=== PATIENT | male | born 1990 | race African-American/Black ===

== ENCOUNTER 2025-05-12 18:01 | Inpatient (IN) | payer SELFPAY ==
--- NOTE | ~2025-05-12 | MR_ITS ---
EXAMINATION: MR lower leg BI wo/w con DATE: 05/14/2025 13:15 INDICATION: Myositis TECHNIQUE: Magnetic resonance imaging (MRI) of the bilateral lower legs from the knees through the ankles was performed without intravenous contrast. Sequences included axial, sagittal and coronal T1-weighted FSE and fluid sensitive FSE STIR, axial T1-weighted FS FSE and post contrast axial, sagittal and coronal T1- weighted FS FSE. COMPARISON: None. FINDINGS: Bone marrow signal is normal throughout with no reactive edema, fracture or pathologic marrow replacing process. Musculature of the bilateral calves appears normal and symmetric with no evident atrophy or abnormal signal. Visualized portion of the tendons are normal. No abnormal enhancing lesions identified. No abnormal masses or fluid collections identified. IMPRESSION: 1. Normal MRI of the bilateral lower legs. Reviewed, dictated and finalized at location A.
--- NOTE | ~2025-05-12 | CT_ITS ---
EXAMINATION: CT chest abdomen pelvis w con DATE: 05/12/2025 22:03 INDICATION: Nausea and vomiting. Leukocytosis. Myalgias. TECHNIQUE: Computed tomography (CT) of the chest, abdomen, and pelvis was performed with 100 mL Omnipaque 350 intravenous contrast. Automated exposure control and iterative reconstruction technique were employed. The dose-length product was 384.76 mGy-cm. COMPARISON: None FINDINGS: CHEST CT: There is a 4 mm nodule in right lung upper lobe, likely benign. There is a 3 mm nodule left lower lobe, likely benign. No pleural effusion. The heart size is normal. No pericardial effusion. There are compression fractures of T4-T6 with up to 1/5 loss of height. ABDOMEN/PELVIS CT: The liver, gallbladder, spleen, pancreas, adrenal glands, and right kidney are normal. There is a 3 mm stone in left kidney. There are no dilated loops of bowel. The appendix is not visualized. There are no pathologically enlarged lymph nodes. There is no free intraperitoneal fluid. There is mild lumbar spondylosis. IMPRESSION: 1. Compression fractures of T4-T6, likely subacute or subacute. Reviewed, dictated and finalized at location E.
--- NOTE | ~2025-05-12 | US_ITS ---
EXAMINATION: US thyroid DATE: 05/15/2025 09:24 INDICATION: Hypothyroidism. TECHNIQUE: Multiple ultrasound images of the thyroid were obtained. COMPARISON: None. FINDINGS: The right thyroid lobe measures 4.8 x 1.9 x 1.7 cm. The left thyroid lobe measures 3.5 x 1.4 x 1.5 cm. In the right thyroid lobe, there is a 10 mm mixed cystic and solid, hypoechoic, wider than tall nodule with smooth margin without echogenic foci (TI-RADS TR3). IMPRESSION: 1. Small thyroid nodule, likely not clinically significant. No follow-up is needed. Reviewed, dictated and finalized at location E. IMPRESSION: 1. Small thyroid nodule, likely not clinically significant. No follow-up is nee ded.
--- NOTE | ~2025-05-12 | US_ITS ---
US abdomen limited Indication: Elevated liver enzymes Comparison: None Technique: King-scale and color Doppler images were obtained. Findings: LIVER: Liver measures 12.9 cm. Mild increased echogenicity of the liver. . GALLBLADDER/BILIARY: Trace gallbladder wall thickening with pericholecystic fluid or cholelithiasis. CBD 2.4 mm. [place] sign negative. PANCREAS: Pancreas limited by bowel gas Right Kidney: The right kidney was not imaged. Impression: 1. No acute process. Mild hepatic steatosis versus hepatocellular disease Reviewed, dictated and finalized at location A. Impression: 1. No acute process. Mild hepatic steatosis versus hepatocellular disease
[2025-05-12 18:03] VITALS: BP 124/95; PULSE 91; RESP 20; TEMP 37.3; O2SAT 98
[2025-05-12 19:24] VITALS: BP 136/85; PULSE 77; RESP 15; TEMP 36.8; O2SAT 99
--- NOTE | 2025-05-12 19:40 | ED.NAVMDI ---
HPI - Nausea/Vomiting/Diarrhea General Chief complaint: Nausea/Vomiting/Diarrhea Stated complaint: n/v, weakness Time Seen by Provider: 05/12/25 19:30 Source: patient and family (mother) Mode of arrival: ambulatory Limitations: no limitations History of Present Illness HPI Narrative: Patient presents with report of being nauseated and vomiting 5x, nonbloody. Feels weak. Having generalized body pain, particularly in bilateral shoulders. Symptoms started last night. Feels like his tongue is swollen and with cuts bilaterally, this started this morning. No seizure history or report of seizures. No diarrhea or fevers. History of asthma but doesn't use an inhaler. Doesn't smoke cigarettes but does smoke marijuana. History of sickle cell trait. No abdominal pain. Having a little difficulty swallowing. Has a sore throat. No sick contacts. PCP Dr Negro. No chest pain or difficulty breathing. Related Data Home Medications ?Medication ?Instructions ?Recorded ?Confirmed ?Last Taken ?Type No Home Medications 05/13/25 05/13/25 Unknown History Allergies Allergy/AdvReac Type Severity Reaction Status Date / Time ibuprofen Allergy Intermediate Itching Verified 05/12/25 18:02 [facility] Past Medical History Medical History (Updated 05/13/25 @ 02:13 by Edie Lazo APRN) Sickle cell trait Asthma Surgical History Surgical History (Updated 05/13/25 @ 01:51 by Edie Lazo APRN) No pertinent past surgical history Family History Family History (Updated 05/13/25 @ 01:52 by Edie Lazo APRN) Other No pertinent family history Social History Social History (Updated 05/13/25 @ 01:55 by Edie Lazo APRN) Social History: Patient admits to smoking marijuana but denies any other drug use. He denies any alcohol use. He is single Code status: Full code Smoking status: Never smoker Alcohol intake: never Substance use: current Substance use type: marijuana Lack of Transportation: No Lack of Food: Never True Current Housing: I Have Housing Concerned About Future Housing: No Difficulty Paying Gas/Electric Bills: No Difficulty Paying for Meds: No Currently Unemployed: No Education: High School Diploma/GED Difficulty w/ Childcare or Family Care: No Spiritual care concerns: No Exam Narrative: GENERAL: well-nourished, and in no acute distress. HEAD: Normocephalic, atraumatic. EYES: Non injected, non icteric ENT: Nares clear, no rhinorrhea or epistaxis. Gross auditory acuity intact. Posterior oropharynx with mild hyperemia. Uvula midline. Tongue is covered in white film, though fairly universal; mildly edematous. Faint areas on bilateral tongue that are hypopigmented, no appreciable laceration/distinct tongue trauma. No trismus. NECK: Supple. No meningismus. CHEST: Speaking in full sentences. No respiratory distress. HEART: Regular rate and rhythm. . ABDOMEN: Soft, nondistended. No rigidity or guarding. Not peritoneal EXTREMITIES: Normal range of motion. No lower extremity edema. No edema or atrophy of musculature at his shoulders or thighs. Compartments soft. No obvious bony deformity. SKIN: Warm, dry, no rash. NEURO: No focal deficits. Alert and oriented. Answering questions. Following commands. Normal speech without aphasia or dysarthria. PSYCH: Normal mood and affect. Course Vital Signs Vital signs: Vital Signs Temperature 99.1 F 05/12/25 18:03 Pulse Rate 91 05/12/25 18:03 Respiratory Rate 20 05/12/25 18:03 Blood Pressure 124/95 H 05/12/25 18:03 Pulse Oximetry 98 05/12/25 18:03 Oxygen Delivery Room Air 05/12/25 18:03 Temperature 98.6 F 05/13/25 21:28 Pulse Rate 74 05/13/25 21:28 Respiratory Rate 16 05/13/25 21:28 Blood Pressure 134/82 05/13/25 21:28 Pulse Oximetry 100 05/13/25 21:28 Oxygen Delivery Room Air 05/13/25 08:00 MDM - Nausea/Vomiting/Diarrhea MDM Narrative Medical decision making narrative: Patient presents with nausea, 5 episodes of vomiting, and report of myalgias particualrly bilateral shoulder pain . Also feels like his tongue is swollen. In the emergency department he is afebrile with acceptable vital signs alleviated diastolic blood pressure normalized on repeat assessment interval intervention. Viral swab negative. Strep swab negative. Creatinine 1.83 with no prior for comparison. Isolated AST elevation. Marked leuocytosis at >20. Will proceed with CT abd/pelvis. Lipase normal. HIV screen (obtained due to questionable thrush in otherwise healthy adult) negative. Attempted to reassessed patient at 9:55 pm but he had been taken to CT. Mother at bedside didn't know if he had reported feeling better but states he was still having shoulder pain. Called CT and asked that they add CT chest on as well while he is on the table. They will change order. Patient having pain in his arms and legs when reassessed at 10:20 p.m.. Will obtain screening EKG and add on Magnesium and CPK. Morphine ordered. When asked how is nausea is, he reports, I don't have no nausea although he had endorsed this earlier; reassured that he is feeling better from this perspective. Troponin normal. CPK markedly elevated at >16,000. 3rd L ordered. In regards to the CT finding in his back, he reports no recent injury or trauma. No crush injury. This is not acute. He states he hurt his back a while ago although he was not aware that he had any her fractures. Discussed with on-call hospitalist Edie. Maintenance IV fluids ordered at 200cc/hr. Differential Diagnosis Differential diagnosis: Likely other (gastritis; acute viral syndrome; peptic ulcer disease; ) Lab Data Attestation: I reviewed the patient's lab results. 05/13/25 05:49 05/13/25 05:49 Labs: Lab Results 05/12/25 05/12/25 05/12/25 Range/Units 19:39 20:27 20:39 WBC 21.6 H (4.5-10.0) K/mm3 RBC 4.99 (4.6-6.20) M/mm3 Hgb 14.6 (14.0-18.0) g/dL Hct 41.5 L (42.0-52.0) % MCV 83.2 (80-100) fl MCH 29.3 (26-34) pg MCHC 35.2 (32-36) g/dl RDW 12.4 (11.5-14.5) % Plt Count 188 (150-375) k/mm3 MPV 9.7 (7.4-10.4) fl Immature Gran % (Auto) 0.6 H (0-0.5) % Neut % (Auto) 89.4 H (45.5-73.1) % Lymph % (Auto) 4.2 L (18.3-44.2) % [place] % (Auto) 5.7 (2.6-8.5) % Eos % (Auto) 0.0 (0-4.4) % Baso % (Auto) 0.1 L (0.2-1.2) % Lymph # (Auto) 0.91 (0.9-3.2) K/mm3 [place] # (Auto) 1.2 H (0.1-0.6) K/mm3 Eos # (Auto) 0.0 (0-0.3) K/mm3 Baso # (Auto) 0.0 (0.0-0.1) K/mm3 Abs Immat Gran (auto) 0.12 H (0.00-0.031) K/mm3 Absolute Neuts (auto) 19.3 H (1.3-6.7) K/mm3 Absolute Nucleated RBC 0.000 (0.0-0.012) K/mm3 Nucleated RBC % 0.0 (0.0-0.2) % PT 16.8 H (11.1-14.7) Seconds INR 1.4 APTT 36.8 (22.3-36.8) Seconds Fibrinogen 507 (215-510) mg/dl Sodium 136 L (137-145) mmol/L Potassium 3.8 (3.4-5.0) mmol/L Chloride 101 (98-107) mmol/L Carbon Dioxide 24 (22-30) mmol/L Anion Gap 11 (4-12) mmol/L BUN 16 (9-20) mg/dL Creatinine 1.83 H (0.7-1.3) mg/dL Estim Creat Clear Calc 40 ml/min Estimated GFR 43 L (59 - ) Glucose 90 (65-110) mg/dL Uric Acid 14.6 H (3.5-8.5) mg/dL Calcium 9.3 (8.4-10.2) mg/dL Phosphorus 4.6 H (2.5-4.5) mg/dL Magnesium 3.2 H (1.6-2.3) mg/dL Total Bilirubin 0.8 (0.2-1.3) mg/dL AST 185 H (17-59) U/L ALT 34 (6-50) U/L Alkaline Phosphatase 122 (38-126) U/L Total Creatine Kinase > 17030 H (55-170) U/L Troponin I < 0.012 (0.000-0.034) ng/mL Total Protein 9.0 H (6.3-8.2) g/dL Albumin 4.9 (3.5-5.1) g/dL Lipase 31 (23-300) U/L Urine Color Yellow (Yellow) Urine Appearance Clear (Clear) Urine pH 5.5 (5.0-9.0) Ur Specific [place] 1.012 (1.001-1.035) Urine Protein 1+ H (Negative) mg/dL Urine Glucose (UA) Negative (Negative) mg/dL Urine Ketones 1+ H (Negative) mg/dL Ur Blood (Man) 2+ H (Negative) Urine Nitrate Negative (Negative) Urine Bilirubin Negative (Negative) Urine Urobilinogen 0.2 (<2.0) mg/dL Leukocyte Esterase Rfl Trace H (Negative) KANE/UL Urine RBC 0-2 (0-2) /hpf Urine WBC 6-10 H (0-3) /hpf Ur Squamous Epith Cells Occasional (Few) /hpf Urine Bacteria None seen /hpf Urine Casts 3-5 Urine Opiates Screen Negative (Negative) Urine Methadone Screen Negative (Negative) Ur Barbiturates Screen Negative (Negative) Ur Phencyclidine Scrn Negative (Negative) Ur Amphetamine Screen Negative (Negative) U Benzodiazepines Scrn Negative (Negative) Urine Cocaine Screen Negative (Negative) U Cannabinoids Screen Positive A (Negative) Ethyl Alcohol < 10 (<10) mg/dL HIV 1&2 Ab/P24 Ag 4thGn Negative (Negative) Influenza A (RT-PCR) Negative (Negative) Influenza B (RT-PCR) Negative (Negative) RSV (RT-PCR) Negative (Negative) SARS-CoV-2 RNA (RT-PCR) Negative (Negative) Group A Strep (PCR) Not detected (Negative) Imaging Data Radiologist's impression: CT Chest Stat Rad: No pulmonary contusion or pneumothorax Acute compression fractures involving superior endplate of T5 and T6. No significant loss of height. Correlate for history of trauma. CT abdomen pelvis Stat Rad: No traumatic visceral injury. No acute fractures. ECG Data EKG #1: Attestation: I personally reviewed and interpreted this ECG as follows: ECG completion date: 05/12/25 ECG completion time: 22:38 Interpretation: Normal sinus rhythm at a rate of 82 beats per minute. LA interval 158. QRS 107. QT/QTC 367/0 6. Good R-wave progression across the precordial leads. No T-wave inversions. Nifedipine. Right axis deviation based on QRS complex negative in 1 otherwise upright in inferior leads. Discharge Plan Discharge Clinical Impression: BOAZ (acute kidney injury), Nausea & vomiting, Elevated AST (SGOT), Myalgia, Bilateral shoulder pain, Mild tongue swelling, Rhabdomyolysis, Compression fracture of T5 vertebra, Compression fracture of T6 vertebra Patient Disposition: Still a Patient Condition: Stable Time of Disposition: 00:11
[2025-05-12 20:10] LABS: Add Urine Microscopic? YES; Appearance Urine Clear (Clear); Glucose Urine UA Negative (Negative); Leukocyte Esterase Ur Trace LEU/UL (Negative); Nitrate Urine Negative (Negative); Specific Grav Ur 1.012 (1.001-1.035)
[2025-05-12 20:30] LABS: Influenza A QL RT-PCR Negative (Negative); Influenza B QL RT-PCR Negative (Negative); RSV RNA, RT-PCR Negative (Negative); SARS-CoV-2 RNA PCR Negative (Negative)
[2025-05-12 20:51] LABS: Hematocrit 41.5 % (42.0-52.0); Hemoglobin 14.6 g/dL (14.0-18.0); Immature Granulocyte Percent A 0.6 % (0-0.5); Lymphocytes Absolute Auto 0.91 K/mm3 (0.9-3.2); Mean Corpuscular HGB Conc 35.2 g/dl (32-36); Mean Corpuscular Hemoglobin 29.3 pg (26-34); Mean Corpuscular Volume 83.2 fl (80-100); Nucleated Red Blood Cells Absolute Auto 0.000 K/mm3 (0.0-0.012); Nucleated Red Blood Cells Perc 0.0 % (0.0-0.2); Platelet Count Result 188 k/mm3 (150-375); Red Blood Count 4.99 M/mm3 (4.6-6.20); White Blood Count 21.6 K/mm3 (4.5-10.0)
[2025-05-12] MEDS: ACETAMINOPHEN 500 MG TABLET 1000 MG PO (20:53)
[2025-05-12 20:54] LABS: Alanine Aminotransferase 34 U/L (6-50); Albumin Level 4.9 g/dL (3.5-5.1); Alkaline Phosphatase 122 U/L (38-126); Anion Gap 11 mmol/L (4-12); Aspartate Amino Transferase 185 U/L (17-59); Bilirubin,Total 0.8 mg/dL (0.2-1.3); Blood Urea Nitrogen 16 mg/dL (9-20); Calcium 9.3 mg/dL (8.4-10.2); Carbon Dioxide 24 mmol/L (22-30); Chloride 101 mmol/L (98-107); Estimated CRCL calculation 40 ml/min; Estimated Glomerular Filt Rate 43; Glucose 90 mg/dL (65-110); Potassium 3.8 mmol/L (3.4-5.0); Sodium 136 mmol/L (137-145); Total Protein 9.0 g/dL (6.3-8.2)
[2025-05-12] MEDS: ONDANSETRON INJ 4 MG/2 ML VIAL IV PUSH (20:54)
[2025-05-12] MEDS: SODIUM CHLORIDE 0.9% IV 1,000 ML 999 ML IV CONT ×3 (20:54→23:44)
[2025-05-12 20:55] LABS: Strep Group A RT-PCR NOT DETECTED (Negative)
[2025-05-12 21:43] LABS: HIV 1/2 Ab P24 Ag Result Negative (Negative)
[2025-05-12 21:50] LABS: Lipase 31 U/L (23-300)
--- NOTE | 2025-05-12 22:23 | ECG_ITS ---
Test Date: 2025-05-12 22:38:39 Measurements Intervals [place] Rate: 82 P: 72 MS: 158 QRS: 94 QRSD: 107 T: 73 QT: 367 QTc: 430 Interpretive Statements SINUS RHYTHM POSSIBLE LEFT ATRIAL ENLARGEMENT [-0.1mV P-WAVE IN V1/V2] BORDERLINE RIGHT AXIS DEVIATION [QRS AXIS > 90] INCOMPLETE RIGHT BUNDLE-BRANCH BLOCK ABNORMAL ECG No previous ECG available for comparison Electronically Signed On 05-13-2025 07:58:39 CDT by Nuno Acosta M.D.
[2025-05-12 22:31] VITALS: BP 117/74; PULSE 76; RESP 20; O2SAT 99
[2025-05-12] MEDS: MORPHINE SULFATE (*CRX) 4 MG/ML INJ IV PUSH (22:34)
[2025-05-12 22:41] LABS: Magnesium 3.2 mg/dL (1.6-2.3)
[2025-05-12 23:28] LABS: Troponin I < 0.012 ng/mL (0.000-0.034)
[2025-05-12 23:29] LABS: Creatine Kinase > 16000 U/L (55-170)
[2025-05-12] MEDS: HYDROmorphone HCL INJ (*CRX) 1 MG/ML SYR 0.5 MG IV PUSH (23:57)
[2025-05-12 23:58] LABS: Uric Acid 14.6 mg/dL (3.5-8.5)
[2025-05-13 00:06] LABS: Cannabinoid Screen Urine Positive (Negative)
[2025-05-13 00:10] LABS: Fibrinogen 507 mg/dl (215-510); INR 1.4; Partial Thromboplastin Time 36.8 Seconds (22.3-36.8); Prothrombin Time 16.8 Seconds (11.1-14.7)
[2025-05-13] MEDS: SODIUM CHLORIDE 0.9% IV 1,000 ML 200 ML IV CONT ×6 (00:35→23:41)
[2025-05-13 00:39] VITALS: BP 122/71; PULSE 80; RESP 17; O2SAT 100
[2025-05-13 00:52] VITALS: BMI 15.5
--- NOTE | 2025-05-13 00:56 | ADMGEN ---
This patient, Lance Hennessy, was admitted to [facility] Surg Room 309-01. Patient/family oriented to hospital policies and general routines including ID bracelet, bed and alarms, visiting hours, pain management, procedures, bathroom and other care routines, personal items, smoking policy, room service/diet, and visiting hours. Information on how to activate the Rapid Response Team has been discussed. Patient/Family are encouraged to report perceived risks to care and to ask questions if they do not understand what they are told or what they should do.
--- NOTE | 2025-05-13 01:37 | PM.IMHP ---
H&P: HPI History of Present Illness Date/Time: 05/13/25 01:37 Chief Complaint: Nausea vomiting diarrhea Narrative: This is a 34-year-old male patient who presented to the emergency room with complaints of shoulder pain and thigh pain. The patient stated he also had some nausea vomiting diarrhea and some confusion. The patient denied any alcohol use or drug use. The patient denies being outside in the heat, having any crushing injury, excessive exercise, seizures, or infectious process. His white count was noted to be 21.6. His sodium was 136, BUN was normal and creatinine 1.83. His estimated GFR was 43. AST is 185 and his total creatinine kinase was greater than 16,000. His urine shows 1+ protein, urine ketones 1+, urine blood 2+, leukocyte esterase trace, and urine WBC 6-10. His urine tox screen was only positive for cannabinoids and his ethyl alcohol was less than 10. HIV serology were negative.Radiologist's impression: CT Chest Stat Rad: No pulmonary contusion or pneumothorax Acute compression fractures involving superior endplate of T5 and T6. No significant loss of height. Correlate for history of trauma. He denied any recent trauma. The patient was given IV fluids, Tylenol, Zofran and Dilaudid in the emergency room. EKG was read as possible left atrial enlargement borderline right axis deviation with moderate ST depression. The patient is being admitted to observation status on the date of service of 05/13/2025 Review of Systems Constitutional: Constitutional: Reports as per HPI and Reports no additional constitutional complaints Eyes: Eyes: Reports as per HPI and Reports no additional eye complaints ENT: Reports no additional ear, nose, mouth, and throat complaints and Reports Normal hearing present Cardiovascular: Cardiovascular: Reports no additional cardiovascular complaints Respiratory: Respiratory: Reports as per HPI and Reports no additional respiratory complaints Gastrointestinal: Gastrointestinal: Reports as per HPI and Reports no additional gastrointestinal complaints Musculoskeletal: Musculoskeletal: Reports no additional musculoskeletal complaints Integumentary/Breasts: Skin/Breast: Reports system reviewed and no additional complaints, except as docu Neurologic: Reports no additional neurologic complaints and Reports Normal hearing present Psychiatric: Psychiatric: Reports no additional psychiatric complaints and Reports as per HPI Hematologic/Lymphatic: Hematologic/Lymphatic: Reports no additional hematologic/lymphatic complaints Allergic/Immunologic: Allergic/Immunologic: Reports no additional allergic/immunologic complaints [facility] Past Medical History Medical History (Updated 05/13/25 @ 02:13 by Edie Lazo APRN) Sickle cell trait Asthma Surgical History Surgical History (Updated 05/13/25 @ 01:51 by Edie Lazo APRN) No pertinent past surgical history Family History Family History (Updated 05/13/25 @ 01:52 by Edie Lazo APRN) Other No pertinent family history Social History Social History (Updated 05/13/25 @ 01:55 by Edie Lazo APRN) Social History: Patient admits to smoking marijuana but denies any other drug use. He denies any alcohol use. He is single Code status: Full code Smoking status: Never smoker Alcohol intake: never Substance use: current Substance use type: marijuana Lack of Transportation: No Lack of Food: Never True Current Housing: I Have Housing Concerned About Future Housing: No Difficulty Paying Gas/Electric Bills: No Difficulty Paying for Meds: No Currently Unemployed: No Education: High School Diploma/GED Difficulty w/ Childcare or Family Care: No Spiritual care concerns: No Meds Home Medications and Allergies Home Medications ?Medication ?Instructions ?Recorded ?Confirmed ?Type No Home Medications 05/13/25 05/13/25 History Allergies Allergy/AdvReac Type Severity Reaction Status Date / Time ibuprofen Allergy Intermediate Itching Verified 05/12/25 18:02 Vital Signs Vital Signs - 24 hr 05/12/25 18:03 05/12/25 19:24 05/12/25 22:31 Temperature 99.1 F 98.2 F Pulse Rate 91 77 76 Respiratory Rate 20 15 20 Blood Pressure 124/95 H 136/85 117/74 Pulse Oximetry 98 99 99 Oxygen Delivery Room Air Room Air 05/13/25 00:39 Temperature Pulse Rate 80 Respiratory Rate 17 Blood Pressure 122/71 Pulse Oximetry 100 Oxygen Delivery Exam Const: General: cooperative, healthy appearing, comfortable, no acute distress, well developed, alert, awake, Physically active, tired appearing, uncomfortable, average body habitus, well nourished and thin Nutritional Appearance: average body habitus and well nourished Orientation/consciousness: oriented to person, oriented to place, oriented to time and patient oriented x3 Limitations: no limitations HENMT: Head: normal to inspection, No palpable skull fracture present, normocephalic, atraumatic and abrasion Ears: hearing grossly normal bilaterally and external ears normal Eyes: General: appearance normal, both eyes and all related structures Alignment and Position: alignment normal Periorbital: periorbital findings normal Eyelids: eyelids normal EOM: EOMs intact bilaterally Neck: Neck: normal visual inspection, full ROM, no lymphadenopathy, trachea midline and supple Thyroid: thyroid normal Carotids: normal carotid upstroke Lymphatic: no lymphadenopathy noted Chest: Chest palpation & inspection: normal inspection of the chest Resp: Effort & Inspection: normal respiratory effort Auscultation: clear to auscultation bilaterally Percussion: percussion normal Cardio: Palpation: normal PMI Rate: regular rate Rhythm: regular rhythm Heart sounds: S1 normal heart sound present and S2 normal heart sound present Peripheral pulses: Peripheral pulses 2+ throughout GI: Inspection: normal to inspection Auscultation: normal bowel sounds Rectal Exam: deferred : General: Yes no CVA tenderness Back/Spine/Pelvis: Back: no CVA tenderness Cervical Spine: cervical ROM normal Thoracic/Lumbar Spine: thoracic and lumbar spine normal to inspection Skin: General skin exam: normal color Lesions: no lesions Rashes: no rashes Trauma: no lacerations or abrasions Wounds: no wounds Hair: normal Nails: normal Neuro: General: oriented to person, oriented to place, oriented to time and patient oriented x3 Cranial nerves: Yes Equal, round and reactive pupils present and Yes Normal hearing present Cognition (Neuro): normal cognition Speech: normal speech Motor exam (neuro): 5/5 motor strength present throughout Sensory Exam: normal sensation Extrem: General: normal to inspection Right upper extremity: normal to inspection and shoulder/upper arm Left upper extremity: normal to inspection and shoulder/upper arm Right lower extremity: normal to inspection Left lower extremity: normal to inspection Psych: Appearance: grossly normal Mental Status: mental status grossly normal Speech and movement: Normal speech and movement present Affect: normal affect Attitude: cooperative Thought process: Normal thought process present Thought content: Yes Normal thought content present Insight: Good insight present (Psych) Judgement: Good judgement present (Psych) H&P: Results Labs Labs: Short CBC 05/12/25 Range/Units 20:39 WBC 21.6 H (4.5-10.0) K/mm3 Hgb 14.6 (14.0-18.0) g/dL Hct 41.5 L (42.0-52.0) % Plt Count 188 (150-375) k/mm3 BMP 05/12/25 20:39 Sodium 136 L Potassium 3.8 Chloride 101 Carbon Dioxide 24 BUN 16 Creatinine 1.83 H Glucose 90 Calcium 9.3 Cardiac Enzymes 05/12/25 Range/Units 20:39 Total Creatine Kinase > 95646 H (55-170) U/L Troponin I < 0.012 (0.000-0.034) ng/mL Liver Function 05/12/25 Range/Units 20:39 Total Bilirubin 0.8 (0.2-1.3) mg/dL AST 185 H (17-59) U/L ALT 34 (6-50) U/L Alkaline Phosphatase 122 (38-126) U/L Albumin 4.9 (3.5-5.1) g/dL Urine 05/12/25 Range/Units 19:39 Urine Color Yellow (Yellow) Urine Appearance Clear (Clear) Urine pH 5.5 (5.0-9.0) Ur Specific [place] 1.012 (1.001-1.035) Urine Protein 1+ H (Negative) mg/dL Urine Glucose (UA) Negative (Negative) mg/dL ECG Interpretation: 82 CT 158 QRSd 107 QT 367 QTc 430 --[place]-- P 72 QRS 94 T 73 SINUS RHYTHM POSSIBLE LEFT ATRIAL ENLARGEMENT [-0.1mV P-WAVE IN V1/V2] BORDERLINE RIGHT AXIS DEVIATION [QRS AXIS > 90] POSSIBLE RIGHT VENTRICULAR CONDUCTION DELAY [RSR (QR) IN V1/V2] MODERATE ST DEPRESSION [0.05+ mV ST DEPRESSION] No previous ECG available for comparison Imaging CT scan - chest: Radiologist's impression: Radiologist's impression: CT Chest Stat Rad: No pulmonary contusion or pneumothorax Acute compression fractures involving superior endplate of T5 and T6. No significant loss of height. Correlate for history of trauma. CT abdomen pelvis Stat Rad: No traumatic visceral injury. No acute fractures Assessment and Plan Assessment and plan (1) Rhabdomyolysis: Code(s): M62.82 - Rhabdomyolysis Status: Acute Assessment and Plan: -his initial CK was greater than 16,000 -repeat daily CKs -continue with normal saline at 200 mils per hour -daily BMP -patient denies any seizure activity, excessive exposure to extreme temperatures, crushing injury, seizures, alcohol use, cocaine or methamphetamine use, or any excessive physical activity. -he could possibly have polymyositis which would require a muscle biopsy and or an EMG for determination -he was negative for any viral disease and HIV. He denies any recent illnesses. (2) BOAZ (acute kidney injury): Code(s): N17.9 - Acute kidney failure, unspecified Status: Acute Assessment and Plan: -daily BMP -BUN is currently normal at 16 and creatinine is elevated at 1.83. (3) Elevated AST (SGOT): Code(s): R74.01 - Elevation of levels of liver transaminase levels Status: Acute Assessment and Plan: -most likely related to the rhabdomyolysis. (4) Compression fracture of T5 vertebra: Code(s): S22.050A - Wedge compression fracture of T5-T6 vertebra, initial encounter for closed fracture Status: Acute Assessment and Plan: -continue with pain management for now. -patient denies any recent trauma -may consider Ortho consult. (5) Leukocytosis: Code(s): D72.829 - Elevated white blood cell count, unspecified Status: Acute Assessment and Plan: -Stress induced? -daily CBC -no source of infection at this time Quality VTE Prophylaxis VTE prophylaxis: mechanical ordered
[2025-05-13 05:25] VITALS: BP 106/69; PULSE 81; RESP 16; TEMP 36.1; O2SAT 99
[2025-05-13] MEDS: ACETAMINOPHEN 325 MG TABLET 650 MG PO (05:41)
[2025-05-13 06:26] LABS: Hematocrit 36.8 % (42.0-52.0); Hemoglobin 12.6 g/dL (14.0-18.0); Immature Granulocyte Percent A 0.5 % (0-0.5); Lymphocytes Absolute Auto 1.36 K/mm3 (0.9-3.2); Mean Corpuscular HGB Conc 34.2 g/dl (32-36); Mean Corpuscular Hemoglobin 29.4 pg (26-34); Mean Corpuscular Volume 85.8 fl (80-100); Nucleated Red Blood Cells Absolute Auto 0.000 K/mm3 (0.0-0.012); Nucleated Red Blood Cells Perc 0.0 % (0.0-0.2); Platelet Count Result 156 k/mm3 (150-375); Red Blood Count 4.29 M/mm3 (4.6-6.20); White Blood Count 15.9 K/mm3 (4.5-10.0)
[2025-05-13 06:49] LABS: Anion Gap 9 mmol/L (4-12); Blood Urea Nitrogen 13 mg/dL (9-20); Calcium 8.0 mg/dL (8.4-10.2); Carbon Dioxide 20 mmol/L (22-30); Chloride 108 mmol/L (98-107); Estimated CRCL calculation 55 ml/min; Estimated Glomerular Filt Rate > 60; Glucose 78 mg/dL (65-110); Potassium 3.8 mmol/L (3.4-5.0); Sodium 137 mmol/L (137-145)
[2025-05-13 06:50] LABS: Magnesium 2.9 mg/dL (1.6-2.3)
[2025-05-13 08:39] LABS: Creatine Kinase > 16000 U/L (55-170)
[2025-05-13 09:09] LABS: Thyroid Stimulating Hormone 9.820 uIU/mL (0.465-4.680)
[2025-05-13 14:00] VITALS: BP 134/89; PULSE 70; RESP 14; TEMP 36.2; O2SAT 100
--- NOTE | 2025-05-13 15:46 | P.PNIM_ITS ---
Progress Note: A&P Assessment and Plan (1) Rhabdomyolysis: Code(s): M62.82 - Rhabdomyolysis Status: Acute Assessment and Plan: Rule out Myositis No hx of trauma or falls AGUILA with reflex and Anti Jo1 antibodies ordered CK today and on admission >78172 HIV negative Continue IVF and monitor Muscle biopsy and EMG ordered (2) BOAZ (acute kidney injury): Code(s): N17.9 - Acute kidney failure, unspecified Status: Acute Assessment and Plan: -daily BMP From Rhabdomyolysis Cr 1.3 from 183 contineu IVF and monitor (3) Elevated AST (SGOT): Code(s): R74.01 - Elevation of levels of liver transaminase levels Status: Acute Assessment and Plan: -most likely related to the rhabdomyolysis. (4) Compression fracture of T5 vertebra: Code(s): S22.050A - Wedge compression fracture of T5-T6 vertebra, initial encounter for closed fracture Status: Acute Assessment and Plan: No pain and no point tenderness on palpation -patient denies any recent trauma COntineu monitoring (5) Leukocytosis: Code(s): D72.829 - Elevated white blood cell count, unspecified Status: Acute Assessment and Plan: -Stress induced? -daily CBC -no source of infection at this time Plan DVT prophylaxis on Sq Lovenox Subjective Date/time seen: 05/13/25 15:46 Interval history: Comfortable at bedside Noted weakness and pain improving Review of Systems Constitutional: Constitutional: Reports as per HPI and Reports no additional constitutional complaints Eyes: Eyes: Reports as per HPI and Reports no additional eye complaints ENT: Reports system reviewed and no additional complaints, except as documented and Reports Normal hearing present Cardiovascular: Cardiovascular: Reports no additional cardiovascular complaints Respiratory: Respiratory: Reports as per HPI and Reports no additional respiratory complaints Gastrointestinal: Gastrointestinal: Reports as per HPI and Reports no additional gastrointestinal complaints Musculoskeletal: Musculoskeletal: Reports no additional musculoskeletal complaints Integumentary/Breasts: Skin/Breast: Reports system reviewed and no additional complaints, except as docu Neurologic: Reports system reviewed and no additional complaints, except as documented and Reports Normal hearing present Psychiatric: Psychiatric: Reports no additional psychiatric complaints and Reports as per HPI Hematologic/Lymphatic: Hematologic/Lymphatic: Reports no additional hematologic/lymphatic complaints Allergic/Immunologic: Allergic/Immunologic: Reports no additional allergic/immunologic complaints Exam Const: General: cooperative, healthy appearing, comfortable, no acute distress, well developed, alert, awake, Physically active, tired appearing, uncomfortable, average body habitus, well nourished and thin Nutritional Appearance: average body habitus, well nourished and thin Orientation/consciousness: oriented to person, oriented to place, oriented to time and patient oriented x3 Limitations: no limitations HENMT: Head: normal to inspection, No palpable skull fracture present, normocephalic, atraumatic and abrasion Ears: hearing grossly normal bilaterally and external ears normal Eyes: General: appearance normal, both eyes and all related structures Alignment and Position: alignment normal Periorbital: periorbital findings normal Eyelids: eyelids normal Pupils: Equal, round and reactive pupils present EOM: EOMs intact bilaterally Neck: Neck: normal visual inspection, full ROM, no lymphadenopathy, trachea midline and supple Thyroid: thyroid normal Carotids: normal carotid upstroke Lymphatic: no lymphadenopathy noted Chest: Chest palpation & inspection: normal inspection of the chest Resp: Effort & Inspection: normal respiratory effort Auscultation: clear to auscultation bilaterally Percussion: percussion normal Cardio: Palpation: normal PMI Rate: regular rate Rhythm: regular rhythm Heart sounds: S1 normal heart sound present and S2 normal heart sound present Peripheral pulses: Peripheral pulses 2+ throughout GI: Inspection: normal to inspection Auscultation: normal bowel sounds Rectal Exam: deferred : General: Yes no CVA tenderness Back/Spine/Pelvis: Back: no CVA tenderness Cervical Spine: cervical ROM normal Thoracic/Lumbar Spine: thoracic and lumbar spine normal to inspection Pelvis: no pain with anterior-posterior compression Skin: General skin exam: normal color Lesions: no lesions Rashes: no rashes Trauma: no lacerations or abrasions Wounds: no wounds Hair: normal Nails: normal Neuro: General: oriented to person, oriented to place, oriented to time and patient oriented x3 Cranial nerves: Yes Equal, round and reactive pupils present and Yes Normal hearing present Cognition (Neuro): normal cognition Speech: normal speech Gait exam (Neuro): Normal gait present Motor exam (neuro): 5/5 motor strength present throughout Sensory Exam: normal sensation Extrem: General: normal to inspection Right upper extremity: normal to inspection and shoulder/upper arm Left upper extremity: normal to inspection and shoulder/upper arm Right lower extremity: normal to inspection Left lower extremity: normal to inspection Psych: Appearance: grossly normal Mental Status: mental status grossly normal Speech and movement: Normal speech and movement present Affect: normal affect Attitude: cooperative Thought process: Normal thought process present Insight: Good insight present (Psych) Judgement: Good judgement present (Psych) Objective Data Vital Signs Vital Signs: Vital Signs - 24 hr 05/12/25 18:03 05/12/25 19:24 05/12/25 22:31 Temperature 99.1 F 98.2 F Pulse Rate 91 77 76 Respiratory Rate 20 15 20 Blood Pressure 124/95 H 136/85 117/74 Pulse Oximetry 98 99 99 Oxygen Delivery Room Air Room Air 05/13/25 00:39 05/13/25 05:25 05/13/25 08:00 Temperature 97.0 F L Pulse Rate 80 81 Respiratory Rate 17 16 Blood Pressure 122/71 106/69 Pulse Oximetry 100 99 Oxygen Delivery Room Air 05/13/25 14:00 Temperature 97.1 F L Pulse Rate 70 Respiratory Rate 14 Blood Pressure 134/89 Pulse Oximetry 100 Oxygen Delivery Intake/Output Intake/Output: Intake & Output 05/10/25 05/11/25 05/12/25 05/13/25 23:59 23:59 23:59 23:59 Intake Total 1999 4256.6 Output Total 1150 Balance 1999 3106.6 Meds/Results Medications: Active Medications Generic Name Dose Route Start Last Admin Trade Name Freq PRN Reason Stop Dose Admin Acetaminophen 650 mg 05/13/25 00:11 05/13/25 05:41 Acetaminophen 325 Mg Tablet PO 650 mg Q4H PRN Administration Mild Pain (1-3) or Fever Sodium Chloride 1,000 mls @ 200 mls/hr 05/13/25 00:15 05/13/25 14:31 Normal Saline Iv IV CONT 200 mls/hr .Q5H ZAIRE Administration Morphine Sulfate 4 mg 05/13/25 00:11 Morphine Sulfate (*Crx) 4 Mg/Ml Inj IV PUSH Q2H PRN Pain Rated 7-10 Ondansetron HCl 4 mg 05/13/25 00:11 Ondansetron Inj 4 Mg/2 Ml Vial IV PUSH Q4H PRN Nausea Radiology Results: ITS Impressions Chest/Abdomen/Pelvis CT 05/13/25 07:38 IMPRESSION: 1. Compression fractures of T4-T6, likely subacute or subacute. Labs Labs: Laboratory Results - last 24 hr 05/12/25 05/12/25 05/12/25 19:39 20:27 20:39 WBC 21.6 H RBC 4.99 Hgb 14.6 Hct 41.5 L MCV 83.2 MCH 29.3 MCHC 35.2 RDW 12.4 Plt Count 188 MPV 9.7 Immature Gran % (Auto) 0.6 H Neut % (Auto) 89.4 H Lymph % (Auto) 4.2 L [place] % (Auto) 5.7 Eos % (Auto) 0.0 Baso % (Auto) 0.1 L Lymph # (Auto) 0.91 [place] # (Auto) 1.2 H Eos # (Auto) 0.0 Baso # (Auto) 0.0 Abs Immat Gran (auto) 0.12 H Absolute Neuts (auto) 19.3 H Absolute Nucleated RBC 0.000 Nucleated RBC % 0.0 PT 16.8 H INR 1.4 APTT 36.8 Fibrinogen 507 Sodium 136 L Potassium 3.8 Chloride 101 Carbon Dioxide 24 Anion Gap 11 BUN 16 Creatinine 1.83 H Estim Creat Clear Calc 40 Estimated GFR 43 L Glucose 90 Uric Acid 14.6 H Calcium 9.3 Phosphorus 4.6 H Magnesium 3.2 H Total Bilirubin 0.8 AST 185 H ALT 34 Alkaline Phosphatase 122 Total Creatine Kinase > 66274 H Troponin I < 0.012 Total Protein 9.0 H Albumin 4.9 Lipase 31 TSH Urine Color Yellow Urine Appearance Clear Urine pH 5.5 Ur Specific [place] 1.012 Urine Protein 1+ H Urine Glucose (UA) Negative Urine Ketones 1+ H Ur Blood (Man) 2+ H Urine Nitrate Negative Urine Bilirubin Negative Urine Urobilinogen 0.2 Leukocyte Esterase Rfl Trace H Urine RBC 0-2 Urine WBC 6-10 H Ur Squamous Epith Cells Occasional Urine Bacteria None seen Urine Casts 3-5 Urine Opiates Screen Negative Urine Methadone Screen Negative Ur Barbiturates Screen Negative Ur Phencyclidine Scrn Negative Ur Amphetamine Screen Negative U Benzodiazepines Scrn Negative Urine Cocaine Screen Negative U Cannabinoids Screen Positive A Ethyl Alcohol < 10 HIV 1&2 Ab/P24 Ag 4thGn Negative Influenza A (RT-PCR) Negative Influenza B (RT-PCR) Negative RSV (RT-PCR) Negative SARS-CoV-2 RNA (RT-PCR) Negative Group A Strep (PCR) Not detected 05/13/25 05:49 WBC 15.9 H RBC 4.29 L Hgb 12.6 L Hct 36.8 L MCV 85.8 MCH 29.4 MCHC 34.2 RDW 12.5 Plt Count 156 MPV 9.4 Immature Gran % (Auto) 0.5 Neut % (Auto) 84.1 H Lymph % (Auto) 8.5 L [place] % (Auto) 6.3 Eos % (Auto) 0.3 Baso % (Auto) 0.3 Lymph # (Auto) 1.36 [place] # (Auto) 1.0 H Eos # (Auto) 0.1 Baso # (Auto) 0.0 Abs Immat Gran (auto) 0.08 H Absolute Neuts (auto) 13.4 H Absolute Nucleated RBC 0.000 Nucleated RBC % 0.0 PT INR APTT Fibrinogen Sodium 137 Potassium 3.8 Chloride 108 H Carbon Dioxide 20 L Anion Gap 9 BUN 13 Creatinine 1.30 Estim Creat Clear Calc 55 Estimated GFR > 60 Glucose 78 Uric Acid Calcium 8.0 L Phosphorus Magnesium 2.9 H Total Bilirubin AST ALT Alkaline Phosphatase Total Creatine Kinase > 29037 H Troponin I Total Protein Albumin Lipase TSH 9.820 H Urine Color Urine Appearance Urine pH Ur Specific [place] Urine Protein Urine Glucose (UA) Urine Ketones Ur Blood (Man) Urine Nitrate Urine Bilirubin Urine Urobilinogen Leukocyte Esterase Rfl Urine RBC Urine WBC Ur Squamous Epith Cells Urine Bacteria Urine Casts Urine Opiates Screen Urine Methadone Screen Ur Barbiturates Screen Ur Phencyclidine Scrn Ur Amphetamine Screen U Benzodiazepines Scrn Urine Cocaine Screen U Cannabinoids Screen Ethyl Alcohol HIV 1&2 Ab/P24 Ag 4thGn Influenza A (RT-PCR) Influenza B (RT-PCR) RSV (RT-PCR) SARS-CoV-2 RNA (RT-PCR) Group A Strep (PCR) Quality VTE Prophylaxis VTE prophylaxis: mechanical ordered
[2025-05-13 21:28] VITALS: BP 134/82; PULSE 74; RESP 16; TEMP 37; O2SAT 100
[2025-05-14] MEDS: SODIUM CHLORIDE 0.9% IV 1,000 ML 200 ML IV CONT ×4 (03:57→20:50)
[2025-05-14 05:56] VITALS: BP 135/81; PULSE 82; RESP 16; TEMP 37.4; O2SAT 99
[2025-05-14 06:55] LABS: Hematocrit 35.9 % (42.0-52.0); Hemoglobin 12.4 g/dL (14.0-18.0); Immature Granulocyte Percent A 0.4 % (0-0.5); Lymphocytes Absolute Auto 1.36 K/mm3 (0.9-3.2); Mean Corpuscular HGB Conc 34.5 g/dl (32-36); Mean Corpuscular Hemoglobin 29.3 pg (26-34); Mean Corpuscular Volume 84.9 fl (80-100); Nucleated Red Blood Cells Absolute Auto 0.000 K/mm3 (0.0-0.012); Nucleated Red Blood Cells Perc 0.0 % (0.0-0.2); Platelet Count Result 163 k/mm3 (150-375); Red Blood Count 4.23 M/mm3 (4.6-6.20); White Blood Count 11.2 K/mm3 (4.5-10.0)
[2025-05-14 07:22] LABS: Alanine Aminotransferase 65 U/L (6-50); Albumin Level 3.9 g/dL (3.5-5.1); Alkaline Phosphatase 94 U/L (38-126); Anion Gap 8 mmol/L (4-12); Aspartate Amino Transferase 350 U/L (17-59); Bilirubin,Total 0.7 mg/dL (0.2-1.3); Blood Urea Nitrogen 8 mg/dL (9-20); Calcium 8.3 mg/dL (8.4-10.2); Carbon Dioxide 22 mmol/L (22-30); Chloride 108 mmol/L (98-107); Estimated CRCL calculation 78 ml/min; Estimated Glomerular Filt Rate > 60; Glucose 66 mg/dL (65-110); Magnesium 2.2 mg/dL (1.6-2.3); Potassium 3.9 mmol/L (3.4-5.0); Sodium 138 mmol/L (137-145); Total Protein 6.9 g/dL (6.3-8.2)
[2025-05-14] MEDS: ACETAMINOPHEN 325 MG TABLET 650 MG PO (08:49)
[2025-05-14] MEDS: ENOXAPARIN 40 MG/0.4 ML SYRINGE SUB-Q (08:50)
[2025-05-14] MEDS: predniSONE 40 MG, predniSONE 10 MG 50 MG PO (10:16)
--- NOTE | 2025-05-14 12:59 | P.PNIM_ITS ---
Progress Note: A&P Assessment and Plan (1) Rhabdomyolysis: Code(s): M62.82 - Rhabdomyolysis Status: Acute Assessment and Plan: Rule out Myositis No hx of trauma or falls AGUILA with reflex and Anti Jo1 antibodies ordered CK today and on admission >32116 HIV negative Continue IVF and monitor MRI LE ordered, IR noted they will need Rheumatology before muschle biopsy Thus is lesions are present in MRI will consider outpatient vs inpatient transfer EMG noted to be an outpatient exam Started on empirical Prednisone (2) BOAZ (acute kidney injury): Code(s): N17.9 - Acute kidney failure, unspecified Status: Acute Assessment and Plan: resolved From Rhabdomyolysis Cr 0.9 from 1.83 contineu IVF and monitor (3) Elevated AST (SGOT): Code(s): R74.01 - Elevation of levels of liver transaminase levels Status: Acute Assessment and Plan: -most likely related to the rhabdomyolysis. (4) Compression fracture of T5 vertebra: Code(s): S22.050A - Wedge compression fracture of T5-T6 vertebra, initial encounter for closed fracture Status: Acute Assessment and Plan: No pain and no point tenderness on palpation -patient denies any recent trauma COntineu monitoring (5) Leukocytosis: Code(s): D72.829 - Elevated white blood cell count, unspecified Status: Acute Assessment and Plan: -Stress induced? -daily CBC -no source of infection at this time Plan DVT prophylaxis on Sq Lovenox Subjective Date/time seen: 05/14/25 12:59 Interval history: Comfortable at bedside Continues to noted improvement MRI LE pending Review of Systems Constitutional: Constitutional: Reports as per HPI and Reports no additional constitutional complaints Eyes: Eyes: Reports as per HPI and Reports no additional eye complaints ENT: Reports system reviewed and no additional complaints, except as documented and Reports Normal hearing present Cardiovascular: Cardiovascular: Reports no additional cardiovascular complaints Respiratory: Respiratory: Reports as per HPI and Reports no additional respiratory complaints Gastrointestinal: Gastrointestinal: Reports as per HPI and Reports no daya tional gastrointestinal complaints Musculoskeletal: Musculoskeletal: Reports no additional musculoskeletal complaints Integumentary/Breasts: Skin/Breast: Reports system reviewed and no additional complaints, except as docu Neurologic: Reports system reviewed and no additional complaints, except as documented and Reports Normal hearing present Psychiatric: Psychiatric: Reports no additional psychiatric complaints and Reports as per HPI Hematologic/Lymphatic: Hematologic/Lymphatic: Reports no additional hematologic/lymphatic complaints Allergic/Immunologic: Allergic/Immunologic: Reports no additional allergic/immunologic complaints Exam Const: General: cooperative, healthy appearing, comfortable, no acute distress, well developed, alert, awake, Physically active, tired appearing, uncomfortable, average body habitus, well nourished and thin Nutritional Appearance: average body habitus, well nourished and thin Orientation/consciousness: oriented to person, oriented to place, oriented to time and patient oriented x3 Limitations: no limitations HENMT: Head: normal to inspection, No palpable skull fracture present, normocephalic, atraumatic and abrasion Ears: hearing grossly normal bilaterally and external ears normal Eyes: General: appearance normal, both eyes and all related structures Alignment and Position: alignment normal Periorbital: periorbital findings normal Eyelids: eyelids normal Pupils: Equal, round and reactive pupils present EOM: EOMs intact bilaterally Neck: Neck: normal visual inspection, full ROM, no lymphadenopathy, trachea midline and supple Thyroid: thyroid normal Carotids: normal carotid upstroke Lymphatic: no lymphadenopathy noted Chest: Chest palpation & inspection: normal inspection of the chest Resp: Effort & Inspection: normal respiratory effort Auscultation: clear to auscultation bilaterally Percussion: percussion normal Cardio: Palpation: normal PMI Rate: regular rate Rhythm: regular rhythm Heart sounds: S1 normal heart sound present and S2 normal heart sound present Peripheral pulses: Peripheral pulses 2+ throughout GI: Inspection: normal to inspection Auscultation: normal bowel sounds Rectal Exam: deferred : General: Yes no CVA tenderness Back/Spine/Pelvis: Back: no CVA tenderness Cervical Spine: cervical ROM normal Thoracic/Lumbar Spine: thoracic and lumbar spine normal to inspection Pelvis: no pain with anterior-posterior compression Skin: General skin exam: normal color Lesions: no lesions Rashes: no rashes Trauma: no lacerations or abrasions Wounds: no wounds Hair: normal Nails: normal Neuro: General: oriented to person, oriented to place, oriented to time and patient oriented x3 Cranial nerves: Yes Equal, round and reactive pupils present and Yes Normal hearing present Cognition (Neuro): normal cognition Speech: normal speech Gait exam (Neuro): Normal gait present Motor exam (neuro): 5/5 motor strength present throughout Sensory Exam: normal sensation Extrem: General: normal to inspection Right upper extremity: normal to inspection and shoulder/upper arm Left upper extremity: normal to inspection and shoulder/upper arm Right lower extremity: normal to inspection Left lower extremity: normal to inspection Psych: Appearance: grossly normal Mental Status: mental status grossly normal Speech and movement: Normal speech and movement present Affect: normal affect Attitude: cooperative Thought process: Normal thought process present Insight: Good insight present (Psych) Judgement: Good judgement present (Psych) Objective Data Vital Signs Vital Signs: Vital Signs - 24 hr 05/13/25 14:00 05/13/25 21:28 05/14/25 05:56 Temperature 97.1 F L 98.6 F 99.4 F Pulse Rate 70 74 82 Respiratory Rate 14 16 16 Blood Pressure 134/89 134/82 135/81 Pulse Oximetry 100 100 99 Intake/Output Intake/Output: Intake & Output 05/11/25 05/12/25 05/13/25 05/14/25 23:59 23:59 23:59 23:59 Intake Total 1999 6673.3 2730.0 Output Total 1950 700 Balance 1999 4723.3 2030.0 Meds/Results Medications: Active Medications Generic Name Dose Route Start Last Admin Trade Name Freq PRN Reason Stop Dose Admin Acetaminophen 650 mg 05/13/25 00:11 05/14/25 08:49 Acetaminophen 325 Mg Tablet PO 650 mg Q4H PRN Administration Mild Pain (1-3) or Fever Enoxaparin Sodium 40 mg 05/14/25 09:00 05/14/25 08:50 Enoxaparin 40 Mg/0.4 Ml Syringe SUB-Q 40 mg DAILY ZAIRE Administration Sodium Chloride 1,000 mls @ 200 mls/hr 05/13/25 00:15 05/14/25 08:50 Normal Saline Iv IV CONT 200 mls/hr .Q5H ZAIRE Administration Morphine Sulfate 4 mg 05/13/25 00:11 Morphine Sulfate (*Crx) 4 Mg/Ml Inj IV PUSH Q2H PRN Pain Rated 7-10 Ondansetron HCl 4 mg 05/13/25 00:11 Ondansetron Inj 4 Mg/2 Ml Vial IV PUSH Q4H PRN Nausea Prednisone 40 mg/ Prednisone 50 mg 05/14/25 09:20 05/14/25 10:16 10 mg PO 50 mg DAILY@0800 ZAIRE Administration Radiology Results: ITS Impressions Chest/Abdomen/Pelvis CT 05/13/25 07:38 IMPRESSION: 1. Compression fractures of T4-T6, likely subacute or subacute. Labs Labs: Laboratory Results - last 24 hr 05/14/25 06:10 WBC 11.2 H RBC 4.23 L Hgb 12.4 L Hct 35.9 L MCV 84.9 MCH 29.3 MCHC 34.5 RDW 12.3 Plt Count 163 MPV 9.9 Immature Gran % (Auto) 0.4 Neut % (Auto) 75.7 H Lymph % (Auto) 12.1 L Angelina % (Auto) 10.7 H Eos % (Auto) 0.7 Baso % (Auto) 0.4 Lymph # (Auto) 1.36 Angelina # (Auto) 1.2 H Eos # (Auto) 0.1 Baso # (Auto) 0.0 Abs Immat Gran (auto) 0.04 H Absolute Neuts (auto) 8.5 H Absolute Nucleated RBC 0.000 Nucleated RBC % 0.0 Sodium 138 Potassium 3.9 Chloride 108 H Carbon Dioxide 22 Anion Gap 8 BUN 8 L D Creatinine 0.90 Estim Creat Clear Calc 78 Estimated GFR > 60 Glucose 66 Calcium 8.3 L Magnesium 2.2 Total Bilirubin 0.7 AST 350 H ALT 65 H Alkaline Phosphatase 94 Total Protein 6.9 Albumin 3.9 Quality VTE Prophylaxis VTE prophylaxis: mechanical ordered
[2025-05-14 14:00] VITALS: BP 142/82; PULSE 78; RESP 16; TEMP 36.6; O2SAT 99
[2025-05-14 14:07] VITALS: BMI 15.5
[2025-05-14 20:37] VITALS: BP 151/95; PULSE 73; RESP 20; TEMP 36.6; O2SAT 100
[2025-05-15] MEDS: SODIUM CHLORIDE 0.9% IV 1,000 ML 200 ML IV CONT ×4 (01:24→19:55)
[2025-05-15 05:24] VITALS: BP 156/92; PULSE 70; RESP 18; TEMP 36.6; O2SAT 100
[2025-05-15 06:55] LABS: Free T4 Free Thyroxine 0.61 ng/dL (0.78-2.19)
[2025-05-15 06:58] LABS: Creatine Kinase > 16000 U/L (55-170)
[2025-05-15] MEDS: predniSONE 40 MG, predniSONE 10 MG 50 MG PO (09:10)
[2025-05-15] MEDS: ENOXAPARIN 40 MG/0.4 ML SYRINGE SUB-Q (09:11)
[2025-05-15] MEDS: LEVOTHYROXINE SODIUM 100 MCG TABLET PO (09:11)
--- NOTE | 2025-05-15 10:29 | P.PNIM_ITS ---
Progress Note: A&P Assessment and Plan (1) Rhabdomyolysis: Code(s): M62.82 - Rhabdomyolysis Status: Acute Assessment and Plan: Hypothyroid myopathy No hx of trauma or falls AGUILA with reflex and Anti Jo1 antibodies ordered CK today and on admission >58264 HIV negative Continue IVF and monitor MRI LE no acute changes EMG noted to be an outpatient exam Started on empirical Prednisone (2) BOAZ (acute kidney injury): Code(s): N17.9 - Acute kidney failure, unspecified Status: Acute Assessment and Plan: resolved From Rhabdomyolysis Cr 0.9 from 1.83 contineu IVF and monitor (3) Elevated AST (SGOT): Code(s): R74.01 - Elevation of levels of liver transaminase levels Status: Acute Assessment and Plan: -most likely related to the rhabdomyolysis. (4) Compression fracture of T5 vertebra: Code(s): S22.050A - Wedge compression fracture of T5-T6 vertebra, initial encounter for closed fracture Status: Acute Assessment and Plan: No pain and no point tenderness on palpation -patient denies any recent trauma COntineu monitoring (5) Leukocytosis: Code(s): D72.829 - Elevated white blood cell count, unspecified Status: Acute Assessment and Plan: -Stress induced? -daily CBC -no source of infection at this time Plan Hypothyroid myopathy TSH is elevated with low T4, 9.82/0.61 US Thyroid pending Started on Levothyroxine 100mcg, weight based Monitor CK >34124 monitor DVT prophylaxis on Sq Lovenox Subjective Date/time seen: 05/15/25 10:29 Interval history: Comfortable at bedside Continues to noted improvement MRI LE no acute changes Review of Systems Constitutional: Constitutional: Reports as per HPI and Reports no additional constitutional complaints Eyes: Eyes: Reports as per HPI and Reports no additional eye complaints ENT: Reports system reviewed and no additional complaints, except as documented and Reports Normal hearing present Cardiovascular: Cardiovascular: Reports no additional cardiovascular complaints Respiratory: Respiratory: Reports as per HPI and Reports no additional respiratory complaints Gastrointestinal: Gastrointestinal: Reports as per HPI and Reports no additional gastrointestinal complaints Musculoskeletal: Musculoskeletal: Reports no additional musculoskeletal com plaints Integumentary/Breasts: Skin/Breast: Reports system reviewed and no additional complaints, except as docu Neurologic: Reports system reviewed and no additional complaints, except as documented and Reports Normal hearing present Psychiatric: Psychiatric: Reports no additional psychiatric complaints and Reports as per HPI Hematologic/Lymphatic: Hematologic/Lymphatic: Reports no additional hematologic/lymphatic complaints Allergic/Immunologic: Allergic/Immunologic: Reports no additional allergic/immunologic complaints Exam Const: General: cooperative, healthy appearing, comfortable, no acute distress, well developed, alert, awake, Physically active, tired appearing, uncomfortable, average body habitus, well nourished and thin Nutritional Appearance: average body habitus, well nourished and thin Orienta tion/consciousness: oriented to person, oriented to place, oriented to time and patient oriented x3 Limitations: no limitations HENMT: Head: normal to inspection, No palpable skull fracture present, normocephalic, atraumatic and abrasion Ears: hearing grossly normal bilaterally and external ears normal Eyes: General: appearance normal, both eyes and all related structures Alignment and Position: alignment normal Periorbital: periorbital findings normal Eyelids: eyelids normal Pupils: Equal, round and reactive pupils present EOM: EOMs intact bilaterally Neck: Neck: normal visual inspection, full ROM, no lymphadenopathy, trachea mi dline and supple Thyroid: thyroid normal Carotids: normal carotid upstroke Lymphatic: no lymphadenopathy noted Chest: Chest palpation & inspection: normal inspection of the chest Resp: Effort & Inspection: normal respiratory effort Auscultation: clear to auscultation bilaterally Percussion: percussion normal Cardio: Palpation: normal PMI Rate: regular rate Rhythm: regular rhythm Heart sounds: S1 normal heart sound present and S2 normal heart sound present Peripheral pulses: Peripheral pulses 2+ throughout GI: Inspection: normal to inspection Auscultation: normal bowel sounds Rectal Exam: deferred : General: Yes no CVA tenderness Back/Spine/Pelvis: Back: no CVA tenderness Cervical Spine: cervical ROM normal Thoracic/Lumbar Spine: thoracic and lumbar spine normal to inspection Pelvis: no pain with anterior-posterior compression Skin: General skin exam: normal color Lesions: no lesions Rashes: no rashes Trauma: no lacerations or abrasions Wounds: no wounds Hair: normal Nails: normal Neuro: General: oriented to person, oriented to place, oriented to time and patient oriented x3 Cranial nerves: Yes Equal, round and reactive pupils present and Yes Normal hearing present Cognition (Neuro): normal cognition Speech: normal speech Gait exam (Neuro): Normal gait present Motor exam (neuro): 5/5 motor strength present throughout Sensory Exam: normal sensation Extrem: General: normal to inspection Right upper extremity: normal to inspection and shoulder/upper arm Left upper extremity: normal to inspection and shoulder/upper arm Right lower extremity: normal to inspection Left lower extremity: normal to inspection Psych: Appearance: grossly normal Mental Status: mental status grossly normal Speech and movement: Normal speech and movement present Affect: normal affect Attitude: cooperative Thought process: Normal thought process present Insight: Good insight present (Psych) Judgement: Good judgement present (Psych) Objective Data Vital Signs Vital Signs: Vital Signs - 24 hr 05/14/25 14:00 05/14/25 20:37 05/15/25 05:24 Temperature 97.8 F 97.9 F 97.8 F Pulse Rate 78 73 70 Respiratory Rate 16 20 18 Blood Pressure 142/82 H 151/95 H 156/92 H Pulse Oximetry 99 100 100 Intake/Output Intake/Output: Intake & Output 05/12/25 05/13/25 05/14/25 05/15/25 23:59 23:59 23:59 23:59 Intake Total 1999 6673.3 6410.0 2048.0 Output Total 1950 700 Balance 1999 4723.3 5710.0 2048.0 Meds/Results Medications: Active Medications Generic Name Dose Route Start Last Admin Trade Name Freq PRN Reason Stop Dose Admin Acetaminophen 650 mg 05/13/25 00:11 05/14/25 08:49 Acetaminophen 325 Mg Tablet PO 650 mg Q4H PRN Administration Mild Pain (1-3) or Fever Enoxaparin Sodium 40 mg 05/14/25 09:00 05/15/25 09:11 Enoxaparin 40 Mg/0.4 Ml Syringe SUB-Q 40 mg DAILY ZAIRE Administration Sodium Chloride 1,000 mls @ 200 mls/hr 05/13/25 00:15 05/15/25 05:17 Normal Saline Iv IV CONT 200 mls/hr .Q5H ZAIRE Administration Levothyroxine Sodium 100 mcg 05/15/25 07:50 05/15/25 09:11 Levothyroxine Sodium 100 Mcg Tablet PO 100 mcg DAILY@0630 ZAIRE Administration Morphine Sulfate 4 mg 05/13/25 00:11 Morphine Sulfate (*Crx) 4 Mg/Ml Inj IV PUSH Q2H PRN Pain Rated 7-10 Ondansetron HCl 4 mg 05/13/25 00:11 Ondansetron Inj 4 Mg/2 Ml Vial IV PUSH Q4H PRN Nausea Prednisone 40 mg/ Prednisone 50 mg 05/14/25 09:20 05/15/25 09:10 10 mg PO 50 mg DAILY@0800 ZAIRE Administration Radiology Results: ITS Impressions Chest/Abdomen/Pelvis CT 05/13/25 07:38 IMPRESSION: 1. Compression fractures of T4-T6, likely subacute or subacute. Lower Extremity MRI 05/14/25 13:37 IMPRESSION: 1. Normal MRI of the bilateral lower legs. Thyroid Ultrasound 05/15/25 09:30 IMPRESSION: 1. Small thyroid nodule, likely not clinically significant. No follow-up is needed. Labs Labs: Laboratory Results - last 24 hr 05/15/25 05:42 Total Creatine Kinase > 90245 H Free T4 0.61 L Quality VTE Prophylaxis VTE prophylaxis: mechanical ordered
[2025-05-15 14:00] VITALS: BP 128/86; PULSE 72; RESP 16; TEMP 36.7; O2SAT 100
[2025-05-15 15:09] LABS: Myoglobin, Urine 166 ng/mL (0-13)
[2025-05-15 21:27] VITALS: BP 141/86; PULSE 74; RESP 16; TEMP 36.9; O2SAT 100
[2025-05-16] MEDS: SODIUM CHLORIDE 0.9% IV 1,000 ML 200 ML IV CONT ×5 (01:54→21:14)
[2025-05-16] MEDS: LEVOTHYROXINE SODIUM 100 MCG TABLET PO (05:33)
[2025-05-16 05:43] VITALS: BP 142/93; PULSE 80; RESP 14; TEMP 36.5; O2SAT 100
[2025-05-16 06:58] LABS: Hematocrit 34.7 % (42.0-52.0); Hemoglobin 12.0 g/dL (14.0-18.0); Immature Granulocyte Percent A 0.3 % (0-0.5); Lymphocytes Absolute Auto 2.26 K/mm3 (0.9-3.2); Mean Corpuscular HGB Conc 34.6 g/dl (32-36); Mean Corpuscular Hemoglobin 29.1 pg (26-34); Mean Corpuscular Volume 84.2 fl (80-100); Nucleated Red Blood Cells Absolute Auto 0.000 K/mm3 (0.0-0.012); Nucleated Red Blood Cells Perc 0.0 % (0.0-0.2); Platelet Count Result 178 k/mm3 (150-375); Red Blood Count 4.12 M/mm3 (4.6-6.20); White Blood Count 11.6 K/mm3 (4.5-10.0)
[2025-05-16 07:32] LABS: Alanine Aminotransferase 75 U/L (6-50); Albumin Level 3.2 g/dL (3.5-5.1); Alkaline Phosphatase 79 U/L (38-126); Anion Gap 2 mmol/L (4-12); Aspartate Amino Transferase 323 U/L (17-59); Bilirubin,Total 0.5 mg/dL (0.2-1.3); Blood Urea Nitrogen 6 mg/dL (9-20); Calcium 8.1 mg/dL (8.4-10.2); Carbon Dioxide 28 mmol/L (22-30); Chloride 107 mmol/L (98-107); Estimated CRCL calculation 109 ml/min; Estimated Glomerular Filt Rate > 60; Glucose 75 mg/dL (65-110); Magnesium 1.6 mg/dL (1.6-2.3); Potassium 3.3 mmol/L (3.4-5.0); Sodium 137 mmol/L (137-145); Total Protein 6.0 g/dL (6.3-8.2)
[2025-05-16 08:11] LABS: Creatine Kinase > 16000 U/L (55-170)
[2025-05-16 08:24] VITALS: O2SAT 96
[2025-05-16] MEDS: predniSONE 40 MG, predniSONE 10 MG 50 MG PO (08:35)
[2025-05-16] MEDS: ENOXAPARIN 40 MG/0.4 ML SYRINGE SUB-Q (08:37)
--- NOTE | 2025-05-16 12:56 | P.PNIM_ITS ---
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 Hep A, B and C panel ordered US liver ordered (4) Compression fracture of T5 vertebra: Code(s): S22.050A - Wedge compression fracture of T5-T6 vertebra, initial encounter for closed fracture Status: Acute Assessment and Plan: No pain and no point tenderness on palpation -patient denies any recent trauma COntineu monitoring (5) Leukocytosis: Code(s): D72.829 - Elevated white blood cell count, unspecified Status: Acute Assessment and Plan: -Stress induced? -daily CBC -no source of infection at this time resolving Plan Hypothyroid myopathy TSH is elevated with low T4, 9.82/0.61 US Thyroid showed small thyroid nodule, likely not clinically significant and no follow up recommended Started on Levothyroxine 100mcg, weight based Monitor CK >36424 monitor DVT prophylaxis on Sq Lovenox Subjective Date/time seen: 05/16/25 12:56 Interval history: Comfortable at bedside CK still elevated, discussed extensively with patient today reiterating why it is important to wait till the CK starts coming down before discharge Review of Systems Constitutional: Constitutional: Reports as per HPI and Reports no additional constitutional complaints Eyes: Eyes: Reports as per HPI and Reports no additional eye complaints ENT: Reports system reviewed and no additional complaints, except as documented and Reports Normal hearing present Cardiovascular: Cardiovascular: Reports no additional cardiovascular complaints Respiratory: Respiratory: Reports as per HPI and Reports no additional respiratory complaints Gastrointestinal: Gastrointestinal: Reports as per HPI and Reports no additional gastrointestinal complaints Musculoskeletal: Musculoskeletal: Reports no additional musculoskeletal complaints Integumentary/Breasts: Skin/Breast: Reports system reviewed and no additional complaints, except as docu Neurologic: Reports system reviewed and no additional complaints, except as documented and Reports Normal hearing present Psychiatric: Psychiatric: Reports no additional psychiatric complaints and Reports as per HPI Hematologic/Lymphatic: Hematologic/Lymphatic: Reports no additional hematologic/lymphatic complaints Allergic/Immunologic: Allergic/Immunologic: Reports no additional allergic/immunologic complaints Exam Const: General: cooperative, healthy appearing, comfortable, no acute distress, well developed, alert, awake, Physically active, tired appearing, uncomfortable, average body habitus, well nourished and thin Nutritional Appearance: average body habitus, well nourished and thin Orientation/consciousness: oriented to person, oriented to place, oriented to time and patient oriented x3 Limitations: no limitations HENMT: Head: normal to inspection, No palpable skull fracture present, normocephalic, atraumatic and abrasion Ears: hearing grossly normal bilaterally and external ears normal Eyes: General: appearance normal, both eyes and all related structures Alignment and Position: alignment normal Periorbital: periorbital findings normal Eyelids: eyelids normal Pupils: Equal, round and reactive pupils present EOM: EOMs intact bilaterally Neck: Neck: normal visual inspection, full ROM, no lymphadenopathy, trachea midline and supple Thyroid: thyroid normal Carotids: normal carotid upstroke Lymphatic: no lymphadenopathy noted Chest: Chest palpation & inspection: normal inspection of the chest Resp: Effort & Inspection: normal respiratory effort Auscultation: clear to auscultation bilaterally Percussion: percussion normal Cardio: Palpation: normal PMI Rate: regular rate Rhythm: regular rhythm Heart sounds: S1 normal heart sound present and S2 normal heart sound present Peripheral pulses: Peripheral pulses 2+ throughout GI: Inspection: normal to inspection Auscultation: normal bowel sounds Rectal Exam: deferred : General: Yes no CVA tenderness Back/Spine/Pelvis: Back: no CVA tenderness Cervical Spine: cervical ROM nor mal Thoracic/Lumbar Spine: thoracic and lumbar spine normal to inspection Pelvis: no pain with anterior-posterior compression Skin: General skin exam: normal color Lesions: no lesions Rashes: no rashes Trauma: no lacerations or abrasions Wounds: no wounds Hair: normal Nails: normal Neuro: General: oriented to person, oriented to place, oriented to time and patient oriented x3 Cranial nerves: Yes Equal, round and reactive pupils present and Yes Normal hearing present Cognition (Neuro): normal cognition Speech: normal speech Gait exam (Neuro): Normal gait present Motor exam (neuro): 5/5 motor strength present throughout Sensory Exam: normal sensation Extrem: General: normal to inspection Right upper extremity: normal to inspection and shoulder/upper arm Left upper extremity: normal to inspection and shoulder/upper arm Right lower extremity: normal to inspection Left lower extremity: normal to inspection Psych: Appearance: grossly normal Mental Status: mental status grossly normal Speech and movement: Normal speech and movement present Affect: normal affect Attitude: cooperative Thought process: Normal thought process present Insight: Good insight present (Psych) Judgement: Good judgement present (Psych) Objective Data Vital Signs Vital Signs: Vital Signs - 24 hr 05/15/25 14:00 05/15/25 21:27 05/16/25 05:43 Temperature 98.0 F 98.5 F 97.7 F Pulse Rate 72 74 80 Respiratory Rate 16 16 14 Blood Pressure 128/86 141/86 H 142/93 H Pulse Oximetry 100 100 100 Oxygen Delivery 05/16/25 08:24 Temperature Pulse Rate Respiratory Rate Blood Pressure Pulse Oximetry 96 Oxygen Delivery Room Air Intake/Output Intake/Output: Intake & Output 05/13/25 05/14/25 05/15/25 05/16/25 23:59 23:59 23:59 23:59 Intake Total 6673.3 6410.0 4958.0 3800 Output Total 1950 700 Balance 4723.3 5710.0 4958.0 3800 Meds/Results Medications: Active Medications Generic Name Dose Route Start Last Admin Trade Name Freq PRN Reason Stop Dose Admin Acetaminophen 650 mg 05/13/25 00:11 05/14/25 08:49 Acetaminophen 325 Mg Tablet PO 650 mg Q4H PRN Administration Mild Pain (1-3) or Fever Enoxaparin Sodium 40 mg 05/14/25 09:00 05/16/25 08:37 Enoxaparin 40 Mg/0.4 Ml Syringe SUB-Q 40 mg DAILY ZAIRE Administration Sodium Chloride 1,000 mls @ 200 mls/hr 05/13/25 00:15 05/16/25 10:59 Normal Saline Iv IV CONT 200 mls/hr .Q5H ZAIRE Administration Levothyroxine Sodium 100 mcg 05/15/25 07:50 05/16/25 05:33 Levothyroxine Sodium 100 Mcg Tablet PO 100 mcg DAILY@0630 [facility] Administration Morphine Sulfate 4 mg 05/13/25 00:11 Morphine Sulfate (*Crx) 4 Mg/Ml Inj IV PUSH Q2H PRN Pain Rated 7-10 Ondansetron HCl 4 mg 05/13/25 00:11 Ondansetron Inj 4 Mg/2 Ml Vial IV PUSH Q4H PRN Nausea Prednisone 40 mg/ Prednisone 50 mg 05/14/25 09:20 05/16/25 08:35 10 mg PO 50 mg DAILY@0800 [facility] Administration Radiology Results: ITS Impressions Chest/Abdomen/Pelvis CT 05/13/25 07:38 IMPRESSION: 1. Compression fractures of T4-T6, likely subacute or subacute. Lower Extremity MRI 05/14/25 13:37 IMPRESSION: 1. Normal MRI of the bilateral lower legs. Thyroid Ultrasound 05/15/25 09:30 IMPRESSION: 1. Small thyroid nodule, likely not clinically significant. No follow-up is needed. Labs Labs: Laboratory Results - last 24 hr 05/13/25 05/16/25 02:50 06:00 WBC 11.6 H RBC 4.12 L Hgb 12.0 L Hct 34.7 L MCV 84.2 MCH 29.1 MCHC 34.6 RDW 11.8 Plt Count 178 MPV 9.8 Immature Gran % (Auto) 0.3 Neut % (Auto) 70.3 Lymph % (Auto) 19.5 [place] % (Auto) 9.3 H Eos % (Auto) 0.3 Baso % (Auto) 0.3 Lymph # (Auto) 2.26 [place] # (Auto) 1.1 H Eos # (Auto) 0.0 Baso # (Auto) 0.0 Abs Immat Gran (auto) 0.04 H Absolute Neuts (auto) 8.1 H Absolute Nucleated RBC 0.000 Nucleated RBC % 0.0 Sodium 137 Potassium 3.3 L Chloride 107 Carbon Dioxide 28 Anion Gap 2 L BUN 6 L Creatinine 0.72 Estim Creat Clear Calc 109 Estimated GFR > 60 Glucose 75 Calcium 8.1 L Magnesium 1.6 Total Bilirubin 0.5 AST 323 H ALT 75 H Alkaline Phosphatase 79 Total Creatine Kinase > 99664 H Total Protein 6.0 L Albumin 3.2 L Urine Myoglobin 166 H Quality VTE Prophylaxis VTE prophylaxis: mechanical ordered
[2025-05-16 13:33] VITALS: BP 124/75; PULSE 64; RESP 18; TEMP 36.2; O2SAT 100
[2025-05-16] MEDS: ACETAMINOPHEN 325 MG TABLET 650 MG PO (21:21)
[2025-05-16 22:00] VITALS: BP 148/95; PULSE 66; RESP 16; TEMP 36.8; O2SAT 98
[2025-05-17] MEDS: SODIUM CHLORIDE 0.9% IV 1,000 ML 200 ML IV CONT ×4 (03:52→23:24)
[2025-05-17] MEDS: LEVOTHYROXINE SODIUM 100 MCG TABLET PO (05:43)
[2025-05-17 06:00] VITALS: BP 146/89; PULSE 74; RESP 18; TEMP 36.6; O2SAT 100
[2025-05-17 06:42] LABS: Hematocrit 40.2 % (42.0-52.0); Hemoglobin 13.6 g/dL (14.0-18.0); Immature Granulocyte Percent A 0.3 % (0-0.5); Lymphocytes Absolute Auto 2.70 K/mm3 (0.9-3.2); Mean Corpuscular HGB Conc 33.8 g/dl (32-36); Mean Corpuscular Hemoglobin 28.8 pg (26-34); Mean Corpuscular Volume 85.2 fl (80-100); Nucleated Red Blood Cells Absolute Auto 0.000 K/mm3 (0.0-0.012); Nucleated Red Blood Cells Perc 0.0 % (0.0-0.2); Platelet Count Result 215 k/mm3 (150-375); Red Blood Count 4.72 M/mm3 (4.6-6.20); White Blood Count 11.5 K/mm3 (4.5-10.0)
[2025-05-17 07:24] LABS: Alanine Aminotransferase 92 U/L (6-50); Albumin Level 3.8 g/dL (3.5-5.1); Alkaline Phosphatase 81 U/L (38-126); Anion Gap 5 mmol/L (4-12); Aspartate Amino Transferase 268 U/L (17-59); Bilirubin,Total 0.5 mg/dL (0.2-1.3); Blood Urea Nitrogen 7 mg/dL (9-20); Calcium 8.4 mg/dL (8.4-10.2); Carbon Dioxide 31 mmol/L (22-30); Chloride 105 mmol/L (98-107); Estimated CRCL calculation 110 ml/min; Estimated Glomerular Filt Rate > 60; Glucose 79 mg/dL (65-110); Potassium 3.2 mmol/L (3.4-5.0); Sodium 141 mmol/L (137-145); Total Protein 7.1 g/dL (6.3-8.2)
[2025-05-17 07:37] LABS: Hepatitis B Surface Antigen Negative (Negative)
[2025-05-17 07:43] LABS: HAV RESULT Negative (Negative); Hepatitis B Core IgM Result Negative (Negative)
[2025-05-17 07:46] LABS: Creatine Kinase > 16000 U/L (55-170)
[2025-05-17 08:00] VITALS: PULSE 74; RESP 18; O2SAT 100
[2025-05-17] MEDS: predniSONE 40 MG, predniSONE 10 MG 50 MG PO (08:23)
[2025-05-17] MEDS: ENOXAPARIN 40 MG/0.4 ML SYRINGE SUB-Q (08:24)
--- NOTE | 2025-05-17 10:48 | PM.IMPN ---
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 Hep A, B and C panel negative US liver no acute changes (4) Compression fracture of T5 vertebra: Code(s): S22.050A - Wedge compression fracture of T5-T6 vertebra, initial encounter for closed fracture Status: Acute Assessment and Plan: No pain and no point tenderness on palpation -patient denies any recent trauma COntineu monitoring (5) Leukocytosis: Code(s): D72.829 - Elevated white blood cell count, unspecified Status: Acute Assessment and Plan: -Stress induced? -daily CBC -no source of infection at this time resolving Plan Hypothyroid myopathy TSH is elevated with low T4, 9.82/0.61 US Thyroid showed small thyroid nodule, likely not clinically significant and no follow up recommended Started on Levothyroxine 100mcg, weight-based Monitor CK >88230 monitor DVT prophylaxis on Sq Lovenox Subjective Date/time seen: 05/17/25 10:48 Interval history: Comfortable at bedside CK still elevated, Counseled patient to wait until CK decreases to lower than 5k Review of Systems Constitutional: Constitutional: Reports as per HPI and Reports no additional constitutional complaints Eyes: Eyes: Reports as per HPI and Reports no additional eye complaints ENT: Reports system reviewed and no additional complaints, except as documented and Reports Normal hearing present Cardiovascular: Cardiovascular: Reports no additional cardiovascular complaints Respiratory: Respiratory: Reports as per HPI and Reports no additional respiratory complaints Gastrointestinal: Gastrointestinal: Reports as per HPI and Reports no additional gastrointestinal complaints Musculoskeletal: Musculoskeletal: Reports no additional musculoskeletal complaints Integumentary/Breasts: Skin/Breast: Reports system reviewed and no additional complaints, except as docu Neurologic: Reports system reviewed and no additional complaints, except as documented and Reports Normal hearing present Psychiatric: Psychiatric: Reports no additional psychiatric complaints and Reports as per HPI Hematologic/Lymphatic: Hematologic/Lymphatic: Reports no additional hematologic/lymphatic complaints Allergic/Immunologic: Allergic/Immunologic: Reports no additional allergic/immunologic complaints Exam Const: General: cooperative, healthy appearing, comfortable, no acute distress, well developed, alert, awake, Physically active, tired appearing, uncomfortable, average body habitus, well nourished and thin Nutritional Appearance: average body habitus, well nourished and thin Orientation/consciousness: oriented to person, oriented to place, oriented to time and patient oriented x3 Limitations: no limitations HENMT: Head: normal to inspection, No palpable skull fracture present, normocephalic, atraumatic and abrasion Ears: hearing grossly normal bilaterally and external ears normal Eyes: General: appearance normal, both eyes and all related structures Alignment and Position: alignment normal Periorbital: periorbital findings normal Eyelids: eyelids normal Pupils: Equal, round and reactive pupils present EOM: EOMs intact bilaterally Neck: Neck: normal visual inspection, full ROM, no lymphadenopathy, trachea midline and supple Thyroid: thyroid normal Carotids: normal carotid upstroke Lymphatic: no lymphadenopathy noted Chest: Chest palpation & inspection: normal inspection of the chest Resp: Effort & Inspection: normal respiratory effort Auscultation: clear to auscultation bilaterally Percussion: percussion normal Cardio: Palpation: normal PMI Rate: regular rate Rhythm: regular rhythm Heart sounds: S1 normal heart sound present and S2 normal heart sound present Peripheral pulses: Peripheral pulses 2+ throughout GI: Inspection: normal to inspection Auscultation: normal bowel sounds Rectal Exam: deferred : General: Yes no CVA tenderness Back/Spine/Pelvis: Back: no CVA tenderness Cervical Spine: cervical ROM normal Thoracic/Lumbar Spine: thoracic and lumbar spine normal to inspection Pelvis: no pain with anterior-posterior compression Skin: General skin exam: normal color Lesions: no lesions Rashes: no rashes Trauma: no lacerations or abrasions Wounds: no wounds Hair: normal Nails: normal Neuro: General: oriented to person, oriented to place, oriented to time and patient oriented x3 Cranial nerves: Yes Equal, round and reactive pupils present and Yes Normal hearing present Cognition (Neuro): normal cognition Speech: normal speech Gait exam (Neuro): Normal gait present Motor exam (neuro): 5/5 motor strength present throughout Sensory Exam: normal sensation Extrem: General: normal to inspection Right upper extremity: normal to inspection and shoulder/upper arm Left upper extremity: normal to inspection and shoulder/upper arm Right lower extremity: normal to inspection Left lower extremity: normal to inspection Psych: Appearance: grossly normal Mental Status: mental status grossly normal Speech and movement: Normal speech and movement present Affect: normal affect Attitude: cooperative Thought process: Normal thought process present Insight: Good insight present (Psych) Judgement: Good judgement present (Psych) Objective Data Vital Signs Vital Signs: Vital Signs - 24 hr 05/16/25 13:33 05/16/25 22:00 05/17/25 06:00 Temperature 97.2 F L 98.3 F 97.8 F Pulse Rate 64 66 74 Respiratory Rate 18 16 18 Blood Pressure 124/75 148/95 H 146/89 H Pulse Oximetry 100 98 100 Oxygen Delivery 05/17/25 08:00 Temperature Pulse Rate 74 Respiratory Rate 18 Blood Pressure Pulse Oximetry 100 Oxygen Delivery Room Air Intake/Output Intake/Output: Intake & Output 05/14/25 05/15/25 05/16/25 05/17/25 23:59 23:59 23:59 23:59 Intake Total 6410.0 4958.0 5623.3 2696.7 Output Total 700 Balance 5710.0 4958.0 5623.3 2696.7 Meds/Results Medications: Active Medications Generic Name Dose Route Start Last Admin Trade Name Freq PRN Reason Stop Dose Admin Acetaminophen 650 mg 05/13/25 00:11 05/16/25 21:21 Acetaminophen 325 Mg Tablet PO 650 mg Q4H PRN Administration Mild Pain (1-3) or Fever Enoxaparin Sodium 40 mg 05/14/25 09:00 05/17/25 08:24 Enoxaparin 40 Mg/0.4 Ml Syringe SUB-Q 40 mg DAILY ZAIRE Administration Sodium Chloride 1,000 mls @ 200 mls/hr 05/13/25 00:15 05/17/25 08:24 Normal Saline Iv IV CONT 200 mls/hr .Q5H ZAIRE Administration Levothyroxine Sodium 100 mcg 05/15/25 07:50 05/17/25 05:43 Levothyroxine Sodium 100 Mcg Tablet PO 100 mcg DAILY@0630 [facility] Administration Morphine Sulfate 4 mg 05/13/25 00:11 Morphine Sulfate (*Crx) 4 Mg/Ml Inj IV PUSH Q2H PRN Pain Rated 7-10 Ondansetron HCl 4 mg 05/13/25 00:11 Ondansetron Inj 4 Mg/2 Ml Vial IV PUSH Q4H PRN Nausea Prednisone 40 mg/ Prednisone 50 mg 05/14/25 09:20 05/17/25 08:23 10 mg PO 50 mg DAILY@0800 [facility] Administration Radiology Results: ITS Impressions Chest/Abdomen/Pelvis CT 05/13/25 07:38 IMPRESSION: 1. Compression fractures of T4-T6, likely subacute or subacute. Lower Extremity MRI 05/14/25 13:37 IMPRESSION: 1. Normal MRI of the bilateral lower legs. Thyroid Ultrasound 05/15/25 09:30 IMPRESSION: 1. Small thyroid nodule, likely not clinically significant. No follow-up is needed. Abdomen Ultrasound 05/16/25 19:04 Impression: 1. No acute process. Mild hepatic steatosis versus hepatocellular disease Labs Labs: Laboratory Results - last 24 hr 05/17/25 05:44 WBC 11.5 H RBC 4.72 Hgb 13.6 L Hct 40.2 L MCV 85.2 MCH 28.8 MCHC 33.8 RDW 12.0 Plt Count 215 MPV 10.0 Immature Gran % (Auto) 0.3 Neut % (Auto) 66.4 Lymph % (Auto) 23.6 [place] % (Auto) 9.2 H Eos % (Auto) 0.3 Baso % (Auto) 0.2 Lymph # (Auto) 2.70 [place] # (Auto) 1.1 H Eos # (Auto) 0.0 Baso # (Auto) 0.0 Abs Immat Gran (auto) 0.03 Absolute Neuts (auto) 7.6 H Absolute Nucleated RBC 0.000 Nucleated RBC % 0.0 Sodium 141 Potassium 3.2 L Chloride 105 Carbon Dioxide 31 H Anion Gap 5 BUN 7 L Creatinine 0.71 Estim Creat Clear Calc 110 Estimated GFR > 60 Glucose 79 Calcium 8.4 Total Bilirubin 0.5 AST 268 H ALT 92 H Alkaline Phosphatase 81 Total Creatine Kinase > 50517 H Total Protein 7.1 Albumin 3.8 Hepatitis A IgM Ab Negative Hep Bs Antigen Negative Hep B Core IgM Ab Negative Hepatitis C Ab Screen Negative Quality VTE Prophylaxis VTE prophylaxis: mechanical ordered
--- NOTE | 2025-05-17 11:52 | PC.NURSE ---
Patient called asking to speak to the nurse, stating he has questions, wants to know what the next steps are. RN called physician to speak to the patient. Physician was transferred into the room to speak to the patient and answer questions at this time
[2025-05-17 14:00] VITALS: BP 133/74; PULSE 78; RESP 16; TEMP 35.7; O2SAT 99
[2025-05-17 21:32] VITALS: BP 152/90; PULSE 67; RESP 14; TEMP 36.6; O2SAT 100
[2025-05-18] MEDS: SODIUM CHLORIDE 0.9% IV 1,000 ML 200 ML IV CONT ×3 (04:38→20:22)
[2025-05-18] MEDS: MORPHINE SULFATE (*CRX) 4 MG/ML INJ IV PUSH (04:39)
[2025-05-18] MEDS: LEVOTHYROXINE SODIUM 100 MCG TABLET PO (05:30)
[2025-05-18 05:40] VITALS: BP 165/87; PULSE 72; RESP 16; TEMP 36.2; O2SAT 99
[2025-05-18 06:04] LABS: Hematocrit 35.0 % (42.0-52.0); Hemoglobin 12.2 g/dL (14.0-18.0); Immature Granulocyte Percent A 0.4 % (0-0.5); Lymphocytes Absolute Auto 2.55 K/mm3 (0.9-3.2); Mean Corpuscular HGB Conc 34.9 g/dl (32-36); Mean Corpuscular Hemoglobin 29.4 pg (26-34); Mean Corpuscular Volume 84.3 fl (80-100); Nucleated Red Blood Cells Absolute Auto 0.000 K/mm3 (0.0-0.012); Nucleated Red Blood Cells Perc 0.0 % (0.0-0.2); Platelet Count Result 209 k/mm3 (150-375); Red Blood Count 4.15 M/mm3 (4.6-6.20); White Blood Count 12.5 K/mm3 (4.5-10.0)
[2025-05-18 07:12] LABS: Alanine Aminotransferase 74 U/L (6-50); Albumin Level 3.2 g/dL (3.5-5.1); Alkaline Phosphatase 74 U/L (38-126); Anion Gap 5 mmol/L (4-12); Aspartate Amino Transferase 165 U/L (17-59); Bilirubin,Total 0.4 mg/dL (0.2-1.3); Blood Urea Nitrogen 9 mg/dL (9-20); Calcium 8.2 mg/dL (8.4-10.2); Carbon Dioxide 30 mmol/L (22-30); Chloride 104 mmol/L (98-107); Creatine Kinase 8957 U/L (55-170); Estimated CRCL calculation 112 ml/min; Estimated Glomerular Filt Rate > 60; Glucose 78 mg/dL (65-110); Magnesium 1.6 mg/dL (1.6-2.3); Potassium 3.2 mmol/L (3.4-5.0); Sodium 139 mmol/L (137-145); Total Protein 6.1 g/dL (6.3-8.2)
--- NOTE | 2025-05-18 08:15 | P.PNIM_ITS ---
Progress Note: A&P Assessment and Plan (1) Rhabdomyolysis: Code(s): M62.82 - Rhabdomyolysis Status: Acute Assessment and Plan: Hypothyroid myopathy No hx of trauma or falls AGUILA with reflex and Anti Jo1 antibodies ordered CK today and on admission >17352 HIV negative Continue IVF and monitor MRI LE no acute changes EMG noted to be an outpatient exam Prednisone discontinued (2) BOAZ (acute kidney injury): Code(s): N17.9 - Acute kidney failure, unspecified Status: Acute Assessment and Plan: resolved From Rhabdomyolysis Cr 0.9 from 1.83 contineu IVF and monitor (3) Elevated AST (SGOT): Code(s): R74.01 - Elevation of levels of liver transaminase levels Status: Acute Assessment and Plan: -most likely related to the rhabdomyolysis. Hep A, B and C panel negative US liver no acute changes (4) Compression fracture of T5 vertebra: Code(s): S22.050A - Wedge compression fracture of T5-T6 vertebra, initial encounter for closed fracture Status: Acute Assessment and Plan: No pain and no point tenderness on palpation -patient denies any recent trauma COntineu monitoring (5) Leukocytosis: Code(s): D72.829 - Elevated white blood cell count, unspecified Status: Acute Assessment and Plan: -Stress induced? -daily CBC -no source of infection at this time resolving Plan Hypothyroid myopathy TSH is elevated with low T4, 9.82/0.61 US Thyroid showed small thyroid nodule, likely not clinically significant and no follow up recommended Started on Levothyroxine 100mcg, weight-based Monitor CK >68524 monitor DVT prophylaxis on Sq Lovenox Subjective Date/time seen: 05/18/25 08:15 Interval history: Continue IV fluid. Patient reports of drug abuse. Her rhabdomyolysis possibly due to the setting of hypothyroidism and drug abuse. Review of Systems Constitutional: Constitutional: Reports as per HPI and Reports no additional constitutional complaints Eyes: Eyes: Reports as per HPI and Reports no additional eye complaints ENT: Reports system reviewed and no additional complaints, except as documented and Reports Normal hearing present Cardiovascular: Cardiovascular: Reports no additional cardiovascular complaints Respiratory: Respiratory: Reports as per HPI and Reports no additional respiratory complaints Gastrointestinal: Gastrointestinal: Reports as per HPI and Reports no additional gastrointestinal complaints Musculoskeletal: Musculoskeletal: Reports no additional musculoskeletal complaints Integumentary/Breasts: Skin/Breast: Reports system reviewed and no additional complaints, except as docu Neurologic: Reports system reviewed and no additional complaints, except as documented and Reports Normal hearing present Psychiatric: Psychiatric: Reports no additional psychiatric complaints and Reports as per HPI Hematologic/Lymphatic: Hematologic/Lymphatic: Reports no additional hematologic/lymphatic complaints Allergic/Immunologic: Allergic/Immunologic: Reports no additional allergic/immunologic complaints Exam Const: General: cooperative, healthy appearing, comfortable, no acute distress, well developed, alert, awake, Physically active, tired appearing, uncomfortable, average body habitus, well nourished and thin Nutritional Appearance: average body habitus, well nourished and thin Orientation/consciousness: oriented to person, oriented to place, oriented to time and patient oriented x3 Limitations: no limitations HENMT: Head: normal to inspection, No palpable skull fracture present, normocephalic, atraumatic and abrasion Ears: hearing grossly normal bilaterally and external ears normal Eyes: General: appearance normal, both eyes and all related structures Alignment and Position: alignment normal Periorbital: periorbital findings normal Eyelids: eyelids normal Pupils: Equal, round and reactive pupils present EOM: EOMs intact bilaterally Neck: Neck: normal visual inspection, full ROM, no lymphadenopathy, trachea midline and supple Thyroid: thyroid normal Carotids: normal carotid upstroke Lymphatic: no lymphadenopathy noted Chest: Chest palpation & inspection: normal inspection of the chest Resp: Effort & Inspection: normal respiratory effort Auscultation: clear to auscultation bilaterally Percussion: percussion normal Cardio: Palpation: normal PMI Rate: regular rate Rhythm: regular rhythm Heart sounds: S1 normal heart sound present and S2 normal heart sound present Peripheral pulses: Peripheral pulses 2+ throughout GI: Inspection: normal to inspection Auscultation: normal bowel sounds Rectal Exam: deferred : General: Yes no CVA tenderness Back/Spine/Pelvis: Back: no CVA tenderness Cervical Spine: cervical ROM normal Thoracic/Lumbar Spine: thoracic and lumbar spine normal to inspection Pelvis: no pain with anterior-posterior compression Skin: General skin exam: normal color Lesions: no lesions Rashes: no rashes Trauma: no lacerations or abrasions Wounds: no wounds Hair: normal Nails: normal Neuro: General: oriented to person, oriented to place, oriented to time and patient oriented x3 Cranial nerves: Yes Equal, round and reactive pupils present and Yes Normal hearing present Cognition (Neuro): normal cognition Speech: normal speech Gait exam (Neuro): Normal gait present Motor exam (neuro): 5/5 motor strength present throughout Sensory Exam: normal sensation Extrem: General: normal to inspection Right upper extremity: normal to inspection and shoulder/upper arm Left upper extremity: normal to inspection and shoulder/upper arm Right lower extremity: normal to inspection Left lower extremity: normal to inspection Psych: Appearance: grossly normal Mental Status: mental status grossly normal Speech and movement: Normal speech and movement present Affect: normal affect Attitude: cooperative Thought process: Normal thought process present Insight: Good insight present (Psych) Judgement: Good judgement present (Psych) Objective Data Vital Signs Vital Signs: Vital Signs - 24 hr 05/17/25 14:00 05/17/25 20:00 05/17/25 21:32 Temperature 96.3 F L 97.8 F Pulse Rate 78 67 Respiratory Rate 16 14 Blood Pressure 133/74 152/90 H Pulse Oximetry 99 100 Oxygen Delivery Room Air 05/18/25 05:40 Temperature 97.2 F L Pulse Rate 72 Respiratory Rate 16 Blood Pressure 165/87 H Pulse Oximetry 99 Oxygen Delivery Intake/Output Intake/Output: Intake & Output 05/15/25 05/16/25 05/17/25 05/18/25 23:59 23:59 23:59 23:59 Intake Total 4958.0 5623.3 5296.7 1550 Balance 4958.0 5623.3 5296.7 1550 Meds/Results Medications: Active Medications Generic Name Dose Route Start Last Admin Trade Name Freq PRN Reason Stop Dose Admin Acetaminophen 650 mg 05/13/25 00:11 05/16/25 21:21 Acetaminophen 325 Mg Tablet PO 650 mg Q4H PRN Administration Mild Pain (1-3) or Fever Enoxaparin Sodium 40 mg 05/14/25 09:00 05/17/25 08:24 Enoxaparin 40 Mg/0.4 Ml Syringe SUB-Q 40 mg DAILY ZAIRE Administration Sodium Chloride 1,000 mls @ 200 mls/hr 05/13/25 00:15 05/18/25 04:38 Normal Saline Iv IV CONT 200 mls/hr .Q5H ZAIRE Administration Levothyroxine Sodium 100 mcg 05/15/25 07:50 05/18/25 05:30 Levothyroxine Sodium 100 Mcg Tablet PO 100 mcg DAILY@0630 ZAIRE Administration Morphine Sulfate 4 mg 05/13/25 00:11 05/18/25 04:39 Morphine Sulfate (*Crx) 4 Mg/Ml Inj IV PUSH 4 mg Q2H PRN Administration Pain Rated 7-10 Ondansetron HCl 4 mg 05/13/25 00:11 Ondansetron Inj 4 Mg/2 Ml Vial IV PUSH Q4H PRN Nausea Radiology Results: ITS Impressions Chest/Abdomen/Pelvis CT 05/13/25 07:38 IMPRESSION: 1. Compression fractures of T4-T6, likely subacute or subacute. Lower Extremity MRI 05/14/25 13:37 IMPRESSION: 1. Normal MRI of the bilateral lower legs. Thyroid Ultrasound 05/15/25 09:30 IMPRESSION: 1. Small thyroid nodule, likely not clinically significant. No follow-up is need ed. Abdomen Ultrasound 05/16/25 19:04 Impression: 1. No acute process. Mild hepatic steatosis versus hepatocellular disease Labs Labs: Laboratory Results - last 24 hr 05/14/25 05/18/25 06:10 05:15 WBC 12.5 H RBC 4.15 L Hgb 12.2 L Hct 35.0 L MCV 84.3 MCH 29.4 MCHC 34.9 RDW 12.1 Plt Count 209 MPV 9.7 Immature Gran % (Auto) 0.4 Neut % (Auto) 69.1 Lymph % (Auto) 20.5 Dewitt % (Auto) 9.5 H Eos % (Auto) 0.3 Baso % (Auto) 0.2 Lymph # (Auto) 2.55 Dewitt # (Auto) 1.2 H Eos # (Auto) 0.0 Baso # (Auto) 0.0 Abs Immat Gran (auto) 0.05 H Absolute Neuts (auto) 8.6 H Absolute Nucleated RBC 0.000 Nucleated RBC % 0.0 Sodium 139 Potassium 3.2 L Chloride 104 Carbon Dioxide 30 Anion Gap 5 BUN 9 Creatinine 0.70 Estim Creat Clear Calc 112 Estimated GFR > 60 Glucose 78 Calcium 8.2 L Magnesium 1.6 Total Bilirubin 0.4 AST 165 H ALT 74 H Alkaline Phosphatase 74 Total Creatine Kinase 8957 H Total Protein 6.1 L Albumin 3.2 L TRA-1 Antibody <0.2 Quality VTE Prophylaxis VTE prophylaxis: mechanical ordered Hospitalist MIPS Advance Care Plan I have confirmed that the patient's Advanced Care Plan is present, code status is documented, or surrogate decision maker is listed in patient medical record.: Yes Medication Reconciliation I have utilized all available resources to obtain, update and review the patients current medications (includes all prescriptions, OTC, herbals, cannabis, and nutritional supplements).: Yes
[2025-05-18] MEDS: ENOXAPARIN 40 MG/0.4 ML SYRINGE SUB-Q (09:18)
--- NOTE | 2025-05-18 09:58 | WPDCDIQUERY2 ---
CDI Query Clarification Request Please clarify type of rhabdomyolysis if known: ? Traumatic or muscle compression (e.g., crush syndrome or prolonged immobilization) ? Non-traumatic exertional (e.g., marked exertion in untrained individuals, hyperthermia, or metabolic myopathies) ? 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 Hep A, B and C panel negative US liver no acute changes (4) Compression fracture of T5 vertebra: Code(s): S22.050A - Wedge compression fracture of T5-T6 vertebra, initial encounter for closed fracture Status: Acute Assessment and Plan: No pain and no point tenderness on palpation -patient denies any recent trauma COntineu monitoring (5) Leukocytosis: Code(s): D72.829 - Elevated white blood cell count, unspecified Status: Acute Assessment and Plan: -Stress induced? -daily CBC -no source of infection at this time resolving Patient presents with report of being nauseated and vomiting 5x, nonbloody. Feels weak. Having generalized body pain, particularly in bilateral shoulders. Symptoms started last night. Feels like his tongue is swollen and with cuts bilaterally, this started this morning. No seizure history or report of seizures. No diarrhea or fevers. History of asthma but doesn't use an inhaler. Doesn't smoke cigarettes but does smoke marijuana. History of sickle cell trait. No abdominal pain. Having a little difficulty swallowing. Has a sore throat. No sick contacts. PCP Dr Negro. No chest pain or difficulty breathing. <Rianna Ochoa RN - Last Filed: 05/18/25 10:00> Clarified Diagnosis Clarified Diagnosis: Non-traumatic no exertional <Bo Pérez MD - Last Filed: 05/18/25 17:02>
--- NOTE | 2025-05-18 10:34 | PCNFU ---
Nutrition Follow-Up Complete: Inadequate oral intake related to loss of appetite as evidenced by weight loss ~ 10 lbs Goal:Adequate PO intake at least 75% Pt meeting goal. Continue with same goal Pt current nutrition is Regular, Ensure BID. Nutrition recommendation: continue with current plan of care Last recorded weight is 60.5 kg. Bowel Motility: +BM 05/17 Labs Reviewed: Hgb:12.2, HCt:35, Alb:3.2, K:3.2 Meds Noted: lovenox Skin: WNL Additional Notes: Pt continues on a regular diet, intake 75%, Ensure in place BID. Agree with diet orders, encourage po intake. Monitoring intakes, weights, labs, supplement tolerance, plan of care Follow up in 5 days
[2025-05-18 13:52] VITALS: BP 139/78; PULSE 80; RESP 18; TEMP 35.9; O2SAT 99
[2025-05-18 21:12] VITALS: BP 136/84; PULSE 74; RESP 14; TEMP 36.6; O2SAT 100
[2025-05-19] MEDS: SODIUM CHLORIDE 0.9% IV 1,000 ML 200 ML IV CONT ×5 (01:29→20:38)
[2025-05-19] MEDS: LEVOTHYROXINE SODIUM 100 MCG TABLET PO (05:30)
[2025-05-19 05:43] VITALS: BP 167/92; PULSE 71; RESP 16; TEMP 36.5; O2SAT 100
[2025-05-19 06:26] LABS: Hematocrit 33.0 % (42.0-52.0); Hemoglobin 11.3 g/dL (14.0-18.0); Mean Corpuscular HGB Conc 34.2 g/dl (32-36); Mean Corpuscular Hemoglobin 29.0 pg (26-34); Mean Corpuscular Volume 84.6 fl (80-100); Platelet Count Result 223 k/mm3 (150-375); Red Blood Count 3.90 M/mm3 (4.6-6.20); White Blood Count 9.0 K/mm3 (4.5-10.0)
[2025-05-19 06:52] LABS: Alanine Aminotransferase 69 U/L (6-50); Albumin Level 3.0 g/dL (3.5-5.1); Alkaline Phosphatase 67 U/L (38-126); Anion Gap 2 mmol/L (4-12); Aspartate Amino Transferase 109 U/L (17-59); Bilirubin,Total 0.4 mg/dL (0.2-1.3); Blood Urea Nitrogen 9 mg/dL (9-20); Calcium 7.9 mg/dL (8.4-10.2); Carbon Dioxide 30 mmol/L (22-30); Chloride 105 mmol/L (98-107); Estimated CRCL calculation 121 ml/min; Estimated Glomerular Filt Rate > 60; Glucose 76 mg/dL (65-110); Potassium 3.4 mmol/L (3.4-5.0); Sodium 137 mmol/L (137-145); Total Protein 5.7 g/dL (6.3-8.2)
[2025-05-19 08:43] LABS: Creatine Kinase 4366 U/L (55-170)
--- NOTE | 2025-05-19 09:15 | P.PNIM_ITS ---
Progress Note: A&P Assessment and Plan (1) Rhabdomyolysis: Code(s): M62.82 - Rhabdomyolysis Status: Acute Assessment and Plan: Possibly due to illicit drug abuse and Hypothyroid myopathy No hx of trauma or falls AGUILA with reflex and Anti Jo1 antibodies ordered CK today and on admission >13105 HIV negative Continue IVF and monitor MRI LE no acute changes EMG noted to be an outpatient exam Prednisone discontinued (2) BOAZ (acute kidney injury): Code(s): N17.9 - Acute kidney failure, unspecified Status: Acute Assessment and Plan: resolved From Rhabdomyolysis Cr 0.9 from 1.83 contineu IVF and monitor (3) Elevated AST (SGOT): Code(s): R74.01 - Elevation of levels of liver transaminase levels Status: Acute Assessment and Plan: -most likely related to the rhabdomyolysis. Hep A, B and C panel negative US liver no acute changes (4) Compression fracture of T5 vertebra: Code(s): S22.050A - Wedge compression fracture of T5-T6 vertebra, initial encounter for closed fracture Status: Acute Assessment and Plan: No pain and no point tenderness on palpation -patient denies any recent trauma COntineu monitoring (5) Leukocytosis: Code(s): D72.829 - Elevated white blood cell count, unspecified Status: Acute Assessment and Plan: -Stress induced? -daily CBC -no source of infection at this time resolving Plan Hypothyroid myopathy TSH is elevated with low T4, 9.82/0.61 US Thyroid showed small thyroid nodule, likely not clinically significant and no follow up recommended Started on Levothyroxine 100mcg, weight-based Monitor CK >14939 monitor DVT prophylaxis on Sq Lovenox Subjective Date/time seen: 05/19/25 09:15 Interval history: Patient has CK trending down. Possible discharge tomorrow Review of Systems Constitutional: Constitutional: Reports as per HPI and Reports no additional constitutional complaints Eyes: Eyes: Reports as per HPI and Reports no additional eye complaints ENT: Reports system reviewed and no additional complaints, except as documented and Reports Normal hearing present Cardiovascular: Cardiovascular: Reports no additional cardiovascular complaints Respiratory: Respiratory: Reports as per HPI and Reports no additional respiratory complaints Gastrointestinal: Gastrointestinal: Reports as per HPI and Reports no additional gastrointestinal complaints Musculoskeletal: Musculoskeletal: Reports no additional musculoskeletal complaints Integumentary/Breasts: Skin/Breast: Reports system reviewed and no additional complaints, except as docu Neurologic: Reports system reviewed and no additional complaints, except as documented and Reports Normal hearing present Psychiatric: Psychiatric: Reports no additional psychiatric complaints and Reports as per HPI Hematologic/Lymphatic: Hematologic/Lymphatic: Reports no additional hematologic/lymphatic complaints Allergic/Immunologic: Allergic/Immunologic: Reports no additional allergic/immunologic complaints Exam Const: General: cooperative, healthy appearing, comfortable, no acute distress, well developed, alert, awake, Physically active, tired appearing, uncomfortable, average body habitus, well nourished and thin Nutritional Appearance: average body habitus, well nourished and thin Orientation/co nsciousness: oriented to person, oriented to place, oriented to time and patient oriented x3 Limitations: no limitations HENMT: Head: normal to inspection, No palpable skull fracture present, normocephalic, atraumatic and abrasion Ears: hearing grossly normal bilaterally and external ears normal Eyes: General: appearance normal, both eyes and all related structures Alignment and Position: alignment normal Periorbital: periorbital findings normal Eyelids: eyelids normal Pupils: Equal, round and reactive pupils present EOM: EOMs intact bilaterally Neck: Neck: normal visual inspection, full ROM, no lymphadenopathy, trachea midline and supple Thyroid: thyroid normal Carotids: normal carotid upstroke Lymphatic: no lymphadenopathy noted Chest: Chest palpation & inspection: normal inspection of the chest Resp: Effort & Inspection: normal respiratory effort Auscultation: clear to auscultation bilaterally Percussion: percussion normal Cardio: Palpation: normal PMI Rate: regular rate Rhythm: regular rhythm Heart sounds: S1 normal heart sound present and S2 normal heart sound present Peripheral pulses: Peripheral pulses 2+ throughout GI: Inspection: normal to inspection Auscultation: normal bowel sounds Rectal Exam: deferred : General: Yes no CVA tenderness Back/Spine/Pelvis: Back: no CVA tenderness Cervical Spine: cervical ROM normal Thoracic/Lumbar Spine: thoracic and lumbar spine normal to inspection Pelvis: no pain with anterior-posterior compression Skin: General skin exam: normal color Lesions: no lesions Rashes: no rashes Trauma: no lacerations or abrasions Wounds: no wounds Hair: normal Nails: normal Neuro: General: oriented to person, oriented to place, oriented to time and patient oriented x3 Cranial nerves: Yes Equal, round and reactive pupils present and Yes Normal hearing present Cognition (Neuro): normal cognition Speech: normal speech Gait exam (Neuro): Normal gait present Motor exam (neuro): 5/5 motor strength present throughout Sensory Exam: normal sensation Extrem: General: normal to inspection Right upper extremity: normal to inspection and shoulder/upper arm Left upper extremity: normal to inspection and shoulder/upper arm Right lower extremity: normal to inspection Left lower extremity: normal to inspection Psych: Appearance: grossly normal Mental Status: mental status grossly normal Speech and movement: Normal speech and movement present Affect: normal affect Attitude: cooperative Thought process: Normal thought process present Insight: Good insight present (Psych) Judgement: Good judgement present (Psych) Objective Data Vital Signs Vital Signs: Vital Signs - 24 hr 05/18/25 09:18 05/18/25 13:52 05/18/25 20:00 Temperature 96.6 F L Pulse Rate 80 Respiratory Rate 18 Blood Pressure 139/78 Pulse Oximetry 99 Oxygen Delivery Room Air Room Air 05/18/25 21:12 05/19/25 05:43 Temperature 97.8 F 97.7 F Pulse Rate 74 71 Respiratory Rate 14 16 Blood Pressure 136/84 167/92 H Pulse Oximetry 100 100 Oxygen Delivery Intake/Output Intake/Output: Intake & Output 05/16/25 05/17/25 05/18/25 05/19/25 23:59 23:59 23:59 23:59 Intake Total 5623.3 5296.7 4323.3 2300.0 Balance 5623.3 5296.7 4323.3 2300.0 Meds/Results Medications: Active Medications Generic Name Dose Route Start Last Admin Trade Name Freq PRN Reason Stop Dose Admin Acetaminophen 650 mg 05/13/25 00:11 05/16/25 21:21 Acetaminophen 325 Mg Tablet PO 650 mg Q4H PRN Administration Mild Pain (1-3) or Fever Hydrocodone Bitart/Acetaminophen 1 tab 05/18/25 14:53 Hydrocodone/Acetaminophen (*Crx) 5-325 Mg Tablet PO Q6H PRN Pain Rated 4-6 Enoxaparin Sodium 40 mg 05/14/25 09:00 05/19/25 08:45 Enoxaparin 40 Mg/0.4 Ml Syringe SUB-Q Not Given DAILY ZAIRE Sodium Chloride 1,000 mls @ 200 mls/hr 05/13/25 00:15 05/19/25 06:29 Normal Saline Iv IV CONT 200 mls/hr .Q5H ZAIRE Administration Levothyroxine Sodium 100 mcg 05/15/25 07:50 05/19/25 05:30 Levothyroxine Sodium 100 Mcg Tablet PO 100 mcg DAILY@0630 ZAIRE Administration Morphine Sulfate 4 mg 05/13/25 00:11 05/18/25 04:39 Morphine Sulfate (*Crx) 4 Mg/Ml Inj IV PUSH 4 mg Q2H PRN Administration Pain Rated 7-10 Ondansetron HCl 4 mg 05/13/25 00:11 Ondansetron Inj 4 Mg/2 Ml Vial IV PUSH Q4H PRN Nausea Radiology Results: ITS Impressions Chest/Abdomen/Pelvis CT 05/13/25 07:38 IMPRESSION: 1. Compression fractures of T4-T6, likely subacute or subacute. Lower Extremity MRI 05/14/25 13:37 IMPRESSION: 1. Normal MRI of the bilateral lower legs. Thyroid Ultrasound 05/15/25 09:30 IMPRESSION: 1. Small thyroid nodule, likely not clinically significant. No follow-up is needed. Abdomen Ultrasound 05/16/25 19:04 Impression: 1. No acute process. Mild hepatic steatosis versus hepatocellular disease Labs Labs: Laboratory Results - last 24 hr 05/19/25 06:01 WBC 9.0 RBC 3.90 L Hgb 11.3 L Hct 33.0 L MCV 84.6 MCH 29.0 MCHC 34.2 RDW 12.5 Plt Count 223 MPV 9.2 Sodium 137 Potassium 3.4 Chloride 105 Carbon Dioxide 30 Anion Gap 2 L BUN 9 Creatinine 0.64 L Estim Creat Clear Calc 121 Estimated GFR > 60 Glucose 76 Calcium 7.9 L Total Bilirubin 0.4 AST 109 H ALT 69 H Alkaline Phosphatase 67 Total Creatine Kinase 4366 H Total Protein 5.7 L Albumin 3.0 L Quality VTE Prophylaxis VTE prophylaxis: mechanical ordered Hospitalist [facility] Advance Care Plan I have confirmed that the patient's Advanced Care Plan is present, code status is documented, or surrogate decision maker is listed in patient medical record.: Yes Medication Reconciliation I have utilized all available resources to obtain, update and review the patients current medications (includes all prescriptions, OTC, herbals, cannabis, and nutritional supplements).: Yes
[2025-05-19 14:00] VITALS: BP 125/73; PULSE 85; RESP 15; TEMP 36.7; O2SAT 100
[2025-05-19] MEDS: HYDROcodone/acetaminophen (*CRX) 5-325 MG TABLET 1 TAB PO (20:39)
[2025-05-19 21:47] VITALS: BP 130/78; PULSE 85; RESP 14; TEMP 36.7; O2SAT 98
[2025-05-20] MEDS: SODIUM CHLORIDE 0.9% IV 1,000 ML 200 ML IV CONT ×3 (04:00→13:32)
[2025-05-20 05:58] VITALS: BP 149/94; PULSE 79; RESP 14; TEMP 36.6; O2SAT 100
[2025-05-20] MEDS: LEVOTHYROXINE SODIUM 100 MCG TABLET PO (06:05)
[2025-05-20 07:18] LABS: Hematocrit 32.0 % (42.0-52.0); Hemoglobin 10.9 g/dL (14.0-18.0); Mean Corpuscular HGB Conc 34.1 g/dl (32-36); Mean Corpuscular Hemoglobin 29.1 pg (26-34); Mean Corpuscular Volume 85.6 fl (80-100); Platelet Count Result 249 k/mm3 (150-375); Red Blood Count 3.74 M/mm3 (4.6-6.20); White Blood Count 7.0 K/mm3 (4.5-10.0)
[2025-05-20 08:21] LABS: Alanine Aminotransferase 67 U/L (6-50); Albumin Level 3.0 g/dL (3.5-5.1); Alkaline Phosphatase 67 U/L (38-126); Anion Gap 4 mmol/L (4-12); Aspartate Amino Transferase 88 U/L (17-59); Bilirubin,Total 0.3 mg/dL (0.2-1.3); Blood Urea Nitrogen 10 mg/dL (9-20); Calcium 8.0 mg/dL (8.4-10.2); Carbon Dioxide 30 mmol/L (22-30); Chloride 105 mmol/L (98-107); Creatine Kinase 2492 U/L (55-170); Estimated CRCL calculation 121 ml/min; Estimated Glomerular Filt Rate > 60; Glucose 78 mg/dL (65-110); Potassium 3.5 mmol/L (3.4-5.0); Sodium 139 mmol/L (137-145); Total Protein 5.6 g/dL (6.3-8.2)
--- NOTE | 2025-05-20 13:52 | P.DS_ITS ---
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 Hep A, B and C panel negative US liver no acute changes (4) Compression fracture of T5 vertebra: Code(s): S22.050A - Wedge compression fracture of T5-T6 vertebra, initial encounter for closed fracture Status: Acute Assessment and Plan: No pain and no point tenderness on palpation -patient denies any recent trauma COntineu monitoring (5) Leukocytosis: Code(s): D72.829 - Elevated white blood cell count, unspecified Status: Acute Assessment and Plan: -Stress induced? 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 The patient stated he also had some nausea vomiting diarrhea and some confusion. The patient denied any alcohol use or drug use. The patient denies being outside in the heat, having any crushing injury, excessive exercise, seizures, or infectious process. His white count was noted to be 21.6. His sodium was 136, BUN was normal and creatinine 1.83. His estimated GFR was 43. AST is 185 and his total creatinine kinase was greater than 16,000. His urine shows 1+ protein, urine ketones 1+, urine blood 2+, leukocyte esterase trace, and urine WBC 6-10. His urine tox screen was only positive for cannabinoids and his ethyl alcohol was less than 10. HIV serology were negative.Radiologist's impression: CT Chest Stat Rad: No pulmonary contusion or pneumothorax.Acute compression fractures involving superior endplate of T5 and T6. No significant loss of height. Correlate for history of trauma.He denied any recent trauma. The patient was given IV fluids, Tylenol, Zofran and Dilaudid in the emergency room. EKG was read as possible left atrial enlargement borderline right axis deviation with moderate ST depression. Assumed care 05/18-05/20: CK continues to trending down. Advised to continue hydration. In regards to rhabdomyolysis possible cause can be opioid use and hypothyroid myopathy. Patient started on levothyroxine 100 mcg and advised to follow-up TSH in 4-6 weeks. On the day of discharge, the patient was seen and examined. Vital signs were stable. Physical exam were stable and labs were reviewed at length. Discharge instructions, medications, and follow-up appointments were discussed with the patient at length and all day questions were answered. ER warnings were given. Status at Discharge Cognitive/behavioral status at discharge: Stable Time Spent with Patient Time attestation: Total time spent providing and/or coordinating discharge services: 45 minutes Exam Const: General: cooperative, healthy appearing, comfortable, no acute distress, well developed, alert, awake, Physically active, tired appearing, uncomfortable, average body habitus, well nourished and thin Nutritional Appearance: average body habitus, well nourished and thin Orientation/consciousness: oriented to person, oriented to place, oriented to time and patient oriented x3 Limitations: no limitations HENMT: Head: normal to inspection, No palpable skull fracture present, normocephalic, atraumatic and abrasion Ears: hearing grossly normal bilaterally and external ears normal Eyes: General: appearance normal, both eyes and all related structures Alignment and Position: alignment normal Periorbital: periorbital findings normal Eyelids: eyelids normal Pupils: Equal, round and reactive pupils present EOM: EOMs intact bilaterally Neck: Neck: normal visual inspection, full ROM, no lymphadenopathy, trachea midline and supple Thyroid: thyroid normal Carotids: normal carotid upstroke Lymphatic: no lymphadenopathy noted Chest: Chest palpation & inspection: normal inspection of the chest Resp: Effort & Inspection: normal respiratory effort Auscultation: clear to auscultation bilaterally Percussion: percussion normal Cardio: Palpation: normal PMI Rate: regular rate Rhythm: regular rhythm Heart sounds: S1 normal heart sound present and S2 normal heart sound present Peripheral pulses: Peripheral pulses 2+ throughout GI: Inspection: normal to inspection Auscultation: normal bowel sounds Rectal Exam: deferred : General: Yes no CVA tenderness Back/Spine/Pelvis: Back: no CVA tenderness Cervical Spine: cervical ROM normal Thoracic/Lumbar Spine: thoracic and lumbar spine normal to inspection Pelvis: no pain with anterior-posterior compression Skin: General skin exam: normal color Lesions: no lesions Rashes: no rashes Trauma: no lacerations or abrasions Wounds: no wounds Hair: normal Nails: normal Neuro: General: oriented to person, oriented to place, oriented to time and patient oriented x3 Cranial nerves: Yes Equal, round and reactive pupils present and Yes Normal hearing present Cognition (Neuro): normal cognition Speech: normal speech Gait exam (Neuro): Normal gait present Motor exam (neuro): 5/5 motor strength present throughout Sensory Exam: normal sensation Extrem: General: normal to inspection Right upper extremity: normal to inspection and shoulder/upper arm Left upper extremity: normal to inspection and shoulder/upper arm Right lower extremity: normal to inspection Left lower extremity: normal to inspection Psych: Appearance: grossly normal Mental Status: mental status grossly normal Speech and movement: Normal speech and movement present Affect: normal affect Attitude: cooperative Thought process: Normal thought process present Insight: Good insight present (Psych) Judgement: Good judgement present (Psych) DS: Data Data Completed and Pending Labs on day of discharge: Labs from last 24 hours 05/20/25 06:50 WBC 7.0 RBC 3.74 L Hgb 10.9 L Hct 32.0 L MCV 85.6 MCH 29.1 MCHC 34.1 RDW 12.5 Plt Count 249 MPV 9.1 Sodium 139 Potassium 3.5 Chloride 105 Carbon Dioxide 30 Anion Gap 4 BUN 10 Creatinine 0.64 L Estim Creat Clear Calc 121 Estimated GFR > 60 Glucose 78 Calcium 8.0 L Total Bilirubin 0.3 AST 88 H ALT 67 H Alkaline Phosphatase 67 Total Creatine Kinase 2492 H Total Protein 5.6 L Albumin 3.0 L Imaging Radiologist's impression: ITS Impressions Chest/Abdomen/Pelvis CT 05/13/25 07:38 IMPRESSION: 1. Compression fractures of T4-T6, likely subacute or subacute. Lower Extremity MRI 05/14/25 13:37 IMPRESSION: 1. Normal MRI of the bilateral lower legs. Thyroid Ultrasound 05/15/25 09:30 IMPRESSION: 1. Small thyroid nodule, likely not clinically significant. No follow-up is needed. Abdomen Ultrasound 05/16/25 19:04 Impression: 1. No acute process. Mild hepatic steatosis versus hepatocellular disease Discharge Plan Discharge Attending physician on discharge: Bo Pérez Discharging Clinician: Bo Pérez Anticipated Discharge Date/Time: 05/20/25 13:59 Patient Disposition: Home Activity: other - see discharge instructions Diet: regular Discharge Instructions: No strenuous activity for a month Avoid Opioid use Avoid smoking Please take levothyroxine in the morning on empty stomach and do not eat or drink anything for 30 minutes. Please recheck TSH in 6 weeks and follow the results with PCP Please visited PCP within a week upon discharge If any concerning symptoms agrees return to ED Patient Instructions: Antibiotic Form, Rhabdomyolysis (DC), Rhabdomyolysis (GEN) Patient Language: Burmese Stand Alone Forms: General Discharge Information Follow-up/Referrals: ManishaLita M.D. [Primary Care Provider] Discharge Medications: New levothyroxine [Synthroid] 100 mcg Tablet 100 mcg PO DAILY@0630 Qty: 30 0RF Date of admission: 05/14/25 14:14 Primary Care Provider: Lita Webb Admitting Provider: Candice Delgado Attending physician on admission: Candice Delgado Condition: Stable
== END 2025-05-20 15:45 | disposition home or self-care (01) | DRG 427 ==
LOC: ANHED 05-13 00:11 → ANH3MEDSUR 05-13 00:29
PROVIDERS: Internal Medicine; Nurse Practitioner; Admitting Provider Family Medicine; Emergency Provider Student in an Organized Health Care Education/Training Program; PCP Internal Medicine Infectious Disease; Visit Provider General Practice
DX: E03.9 Hypothyroidism, unspecified (principal); G73.7 Myopathy in diseases classified elsewhere; M62.82 Rhabdomyolysis; N17.9 Acute kidney failure, unspecified; F12.90 Cannabis use, unspecified, uncomplicated; F11.90 Opioid use, unspecified, uncomplicated; D57.3 Sickle-cell trait; D72.829 Elevated white blood cell count, unspecified; M48.54XA Collapsed vertebra, not elsewhere classified, thoracic region, initial encounter for fracture; X58.XXXA Exposure to other specified factors, initial encounter; R13.10 Dysphagia, unspecified; J02.9 Acute pharyngitis, unspecified; R60.0 Localized edema; Z87.09 Personal history of other diseases of the respiratory system
CPT/HCPCS: 36415; 71260; 73720; 74177; 76536; 76705; 80048; 80053; 80074; 80307; 81001; 82077; 82550; 83690; 83735; 83874; 84100; 84439; 84443; 84484; 84550; 85025; 85027; 85384; 85610; 85730; 86235; 86703; 87086; 87637; 87651; 93005; 96360; 96361; 96372; 96374; 96375; 99285; A9270; A9577; G0378; G0432; J1171; J1650; J2270; J2405; J7030; J7512; Q9967